=== PATIENT | female | born 1960 | race Caucasian/White ===

== ENCOUNTER → 2017-08-22 16:08 | Outpatient (CLI) | payer OTHER, SELFPAY ==
[2017-08-22 18:01] LABS: Thyroid Stim Hormone (TSH) 1.61 uIU/mL (0.358-3.74)
== END ==
PROVIDERS: Family Provider Family Medicine; PCP Family Medicine; Visit Provider Family Medicine
DX: M85.80 Other specified disorders of bone density and structure, unspecified site (principal)
CPT/HCPCS: 36415; 84443

== ENCOUNTER → 2017-10-24 16:26 | Outpatient (CLI) | payer OTHER, SELFPAY ==
[2017-10-24 17:57] LABS: Anion Gap 7 (5-15); BUN 15 mg/dL (7-18); BUN/Creat Ratio 18.8 RATIO (10-20); Chloride 106 mmol/L (98-107); EST Glomerular Filtration Rate 79 mL/min (>60); Est Glom Filt Rate - Afr Amer 95 mL/min (>60); Glucose 92 mg/dL (74-106); Potassium 3.8 mmol/L (3.5-5.1); Sodium Level 140 mmol/L (136-145)
== END ==
PROVIDERS: Family Provider Family Medicine; PCP Family Medicine; Visit Provider Family Medicine
DX: I10 Essential (primary) hypertension (principal)
CPT/HCPCS: 36415; 80048

== ENCOUNTER → 2018-01-18 16:39 | Outpatient (CLI) | payer OTHER, SELFPAY ==
[2018-01-18 17:56] LABS: BUN 17 mg/dL (7-18); Creatinine, Serum 0.84 mg/dL (0.55-1.02); EST Glomerular Filtration Rate 74 mL/min (>60); Glucose 88 mg/dL (74-106)
[2018-01-18 17:57] LABS: Anion Gap 5 (5-15); BUN/Creat Ratio 20.2 RATIO (10-20); Calcium,Total 9.5 mg/dL (8.5-10.1); Chloride 103 mmol/L (98-107); Est Glom Filt Rate - Afr Amer 89 mL/min (>60); Potassium 3.7 mmol/L (3.5-5.1); Sodium Level 137 mmol/L (136-145)
== END ==
PROVIDERS: Family Provider Family Medicine; PCP Family Medicine; Visit Provider Family Medicine
DX: I10 Essential (primary) hypertension (principal)
CPT/HCPCS: 36415; 80048

== ENCOUNTER → 2018-02-07 16:52 | Outpatient (CLI) | payer OTHER, SELFPAY | PROVIDERS: Family Provider Family Medicine; PCP Family Medicine; Referring Provider Family Medicine; Visit Provider Family Medicine | DX: M85.80 Other specified disorders of bone density and structure, unspecified site (principal) | CPT/HCPCS: 36415; 82306 ==

== ENCOUNTER → 2018-09-15 09:16 | Outpatient (CLI) | payer OTHER, SELFPAY ==
[2018-09-15 10:37] LABS: Anion Gap 8 (5-15); BUN 20 mg/dL (7-18); BUN/Creat Ratio 28.8 RATIO (10-20); Calcium,Total 9.2 mg/dL (8.5-10.1); Chloride 104 mmol/L (98-107); Cholesterol 207 mg/dL (200); Creatinine, Serum 0.69 mg/dL (0.55-1.02); EST Glomerular Filtration Rate 92 mL/min (>60); Est Glom Filt Rate - Afr Amer 111 mL/min (>60); Glucose 93 mg/dL (74-106); High Density Lipoprotein 63 mg/dL; Potassium 4.1 mmol/L (3.5-5.1); Sodium Level 142 mmol/L (136-145); Triglycerides 131 mg/dL; Very Low Density Lipoprotein 26 mg/dL (5-40)
== END ==
PROVIDERS: Family Provider Family Medicine; PCP Family Medicine; Referring Provider Family Medicine; Visit Provider Family Medicine
DX: I10 Essential (primary) hypertension (principal)
CPT/HCPCS: 36415; 80048; 80061

== ENCOUNTER → 2020-01-23 16:53 | Outpatient (CLI) | payer OTHER, SELFPAY ==
[2020-01-23 19:00] LABS: Anion Gap 3 (5-15); BUN 18 mg/dL (7-18); BUN/Creat Ratio 25.8 RATIO (10-20); Chloride 102 mmol/L (98-107); EST Glomerular Filtration Rate 91 mL/min (>60); Est Glom Filt Rate - Afr Amer 110 mL/min (>60); Glucose 89 mg/dL (74-106); Potassium 3.7 mmol/L (3.5-5.1); Sodium Level 135 mmol/L (136-145)
== END ==
PROVIDERS: PCP Family Medicine; Referring Provider Family Medicine; Visit Provider Family Medicine
DX: I10 Essential (primary) hypertension (principal)
CPT/HCPCS: 36415; 80048

== ENCOUNTER → 2020-02-07 15:28 | Outpatient (CLI) | payer OTHER, SELFPAY | PROVIDERS: PCP Family Medicine; Referring Provider Family Medicine; Visit Provider Family Medicine | DX: U07.1 COVID-19 (principal) | CPT/HCPCS: 87635; U0003 ==

== ENCOUNTER → 2021-01-26 16:40 | Outpatient (CLI) | payer OTHER, SELFPAY ==
[2021-01-26 18:19] LABS: Anion Gap 8 (5-15); BUN 15 mg/dL (7-18); BUN/Creat Ratio 21.8 RATIO (10-20); Calcium,Total 9.1 mg/dL (8.5-10.1); Chloride 101 mmol/L (98-107); Creatinine, Serum 0.69 mg/dL (0.55-1.02); EST Glomerular Filtration Rate 92 mL/min (>60); Est Glom Filt Rate - Afr Amer 112 mL/min (>60); Glucose 91 mg/dL (74-106); Potassium 3.4 mmol/L (3.5-5.1); Sodium Level 137 mmol/L (136-145)
[2021-01-26 18:20] LABS: Vitamin D,25 Hydroxy 56.4 ng/mL
== END ==
PROVIDERS: PCP Family Medicine; Referring Provider Family Medicine; Visit Provider Family Medicine
DX: I10 Essential (primary) hypertension (principal); M85.80 Other specified disorders of bone density and structure, unspecified site
CPT/HCPCS: 36415; 80048; 82306

== ENCOUNTER → 2021-12-14 | Outpatient (CLI) | payer OTHER, SELFPAY | END | disposition home or self-care (01) | PROVIDERS: PCP Family Medicine; Visit Provider Family Medicine | DX: Z20.822 Contact with and (suspected) exposure to COVID-19 (principal) | CPT/HCPCS: 87635; U0003; U0005 ==

== ENCOUNTER → 2022-02-03 | Outpatient (CLI) | payer OTHER, SELFPAY ==
[2022-02-03 08:27] LABS: Mucous, Urine 0 SEEN /hpf (<or=2+)
[2022-02-03 10:37] LABS: Color, Urine Yellow (Yellow); Glucose, Dipstick Normal (Normal); Ketone-Dipstick Negative (Negative); Leukocyte Esterase-Dipstick 25 /ul (Negative); Nitrite-Dipstick Negative (Negative); Occult Blood-Urine 25 /ul (Negative); Protein-Dipstick Negative (Negative); Urine Bilirubin Dipstick Negative (Negative); Urine Clarity Sl. Cloudy (Clear); Urine Urobilinogen Normal (Normal)
[2022-02-03 10:49] LABS: Bacteria 1+ /hpf (None Seen); Red Blood Cells-Urine 0-5 SEEN /hpf (0-5); Squamous Epithelial Cells - UA 0-5 SEEN /hpf (5-10); White Blood Cells 0-5 SEEN /hpf (0-5)
== END | disposition home or self-care (01) ==
LOC: MFPLAB 08:25 → LABSPEC 08:25
PROVIDERS: PCP Family Medicine; Referring Provider Family Medicine; Visit Provider Family Medicine
DX: R31.9 Hematuria, unspecified (principal)
CPT/HCPCS: 81001; 87086; 87088

== ENCOUNTER → 2022-08-18 | Outpatient (CLI) | payer OTHER, SELFPAY ==
[2022-08-18 19:41] LABS: Anion Gap 8 (5-15); BUN 16 mg/dL (7-18); BUN/Creat Ratio 24.8 RATIO (10-20); Calcium,Total 8.5 mg/dL (8.5-10.1); Chloride 104 mmol/L (98-107); Creatinine, Serum 0.64 mg/dL (0.55-1.02); EST Glomerular Filtration Rate 99 mL/min (>60); Est Glom Filt Rate - Afr Amer 120 mL/min (>60); Glucose 102 mg/dL (74-106); Potassium 3.5 mmol/L (3.5-5.1); Sodium Level 137 mmol/L (136-145)
== END | disposition home or self-care (01) ==
LOC: MTLAB 16:36
PROVIDERS: PCP Family Medicine; Referring Provider Family Medicine; Visit Provider Family Medicine
DX: I10 Essential (primary) hypertension (principal)
CPT/HCPCS: 36415; 80048

== ENCOUNTER → 2023-03-24 | Outpatient (CLI) | payer OTHER, SELFPAY | END | disposition home or self-care (01) | PROVIDERS: PCP Family Medicine; Visit Provider Family Medicine | DX: N39.0 Urinary tract infection, site not specified (principal) | CPT/HCPCS: 87077; 87086; 87088; 87186 ==

== ENCOUNTER → 2023-05-10 | Outpatient (CLI) | payer OTHER, SELFPAY ==
--- NOTE | 2023-05-10 15:20 | BD_ITS ---
STUDY: DUAL ENERGY X-RAY ABSORPTIOMETRY / DXA REASON FOR EXAM: Female, 63 years old. M85.89 TECHNIQUE: Bone Mineral Density (BMD) measurements of lumbar spine and bilateral hips were obtained. COMPARISON: None. FINDINGS: Lumbar Spine (L1-L4): g/cm2 (0.877) / T-score (-1.5) / Z-score (0.1) Findings are suggestive of osteopenia with a low fracture risk. Left Femur Total: g/cm2 (1.030) / T-score (0.7) / Z-score (1.9) Left Femoral Neck: g/cm2 (0.903) / T-score (0.5) / Z-score (1.9) Right Femur Total: g/cm2 (0.894) / T-score (-0.4) / Z-score (0.7) Right Femoral Neck: g/cm2 (0.718) / T-score (-1.2) / Z-score (0.2) BD/Dexa Bone Density Study IMPRESSION: The patient is considered osteopenic as outlined below according to World [employer] (WHO) criteria with a low fracture risk. Reference Information: The T-score is the number of standard deviations above or below the standard which is normal for young adults at their peak bone mineral density. The World Health Organization (WHO) interprets the T-scores as follows: Above -1 Normal bone density Between -1 and -2.5 Osteopenia Equal to / or below -2.5 Osteoporosis As a practical clinical guideline, osteopenia may be graded as follows: Mild -1 through -1.5 Moderate -1.6 through -2.0 Severe -2.1 through -2.4 The Z-score is the number of standard deviations above or below age-matched controls. A Z-score of less than -1.5 would be considered abnormal. References: 1. NIH Osteoporosis and Related Bone Diseases www osteo.org 2. International Society for Clinical Densitometry www iscd.org 3. National Osteoporosis Foundation www nof.org Electronically Signed: Gonzalo Jasso MD at 9:23 EST ,
--- OUTSIDE RECORDS SUMMARY | 2023-05-10 18:58 | XMS RPT_ITS | CCD ---
Author Name Unknown Address [address] [place] [address] Organization [facility] Care Team Providers Care Roofing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 Name Role Phone EH ROBERSON Admitting Unavailable EH ROBERSON Attending Unavailable EH ROBERSON Primary Care Unavailable Lio Clarke MD Primary Care Provider Lio Clarke MD Primary Care Provider Lio Clarke MD Primary Care Provider YOSELIN LOPEZ Attending Unavailable YOSELIN LOPEZ Referring Unavailable LIO CLARKE Primary Care UnavailNANCY Alvarado Referring Unavailable LIO CLARKE Primary Care Unavailkayla saleh Allergies Allergy Classification Reported Allergen(s) Allergy Type Date of Onset Reaction(s) Facility (7 sources) dairy products [Other] Propensity to adverse reactions [address] [place] [address] Work Phone: (7 sources) seasonal allergies [Other] Propensity to adverse reactions [address] [place] [address] Work Phone: (1 source) OTHER; Translations: [OTHER] Propensity to adverse reactions (disorder) [address] [place] [address] Repository Medications Completed/Discontinued Medications Medication Drug Class(es) Dates Sig (Normalized) Sig (Original) acetaminophen 250 mg / aspirin 250 mg / caffeine 65 mg oral tablet (7 sources) Platelet Aggregation Inhibitor, Nonsteroidal Anti-inflammatory Drug, Central Nervous System Stimulant, Methylxanthine Start: 08-05-2005 EXCEDRIN MIGRAINE 250 MG-250 MG-65 MG TAB prn 0 08/05/2005 Active Problems Active Problems Problem Classification Problem Date Documented Date Episodic/Chronic Essential hypertension (7 sources) Hypertensive disorder; Translations: [Essential (primary) hypertension] Onset: 03-14-2014 03-14-2014 Chronic Headache; including migraine (2 sources) Headache; Translations: [Headache] Onset: 12-04-2019 Episodic Immunizations and screening for infectious disease (1 source) Encounter for observation for suspected exposure to other biological agents ruled out; Translations: [Encounter for observation for suspected exposure to other biological agents ruled out] Onset: 12-04-2019 Episodic Menopausal disorders (7 sources) Atrophic vaginitis; Translations: [Postmenopausal atrophic vaginitis] Onset: 12-21-2012 12-21-2012 Chronic Nonmalignant breast conditions (1 source) Breast finding ; Translations: [Dense breast tissue] 11-05-2022 Episodic Other circulatory disease (7 sources) Raynaud's disease; Translations: [Raynaud's syndrome without gangrene] Onset: 03-14-2014 03-14-2014 Chronic Other inflammatory condition of skin (7 sources) Psoriasis; Translations: [Psoriasis, unspecified] Onset: 12-20-2011 12-20-2011 Chronic Other screening for suspected conditions (not mental disorders or infectious disease) (8 sources) Patient encounter status; Translations: [Encounter for screening mammogram for malignant neoplasm of breast] Onset: 11-05-2022 Episodic Residual codes; unclassified (1 source) Postmenopausal state; Translations: [Asymptomatic menopausal state] 11-05-2022 Episodic Past or Other Problems Problem Classification Problem Date Documented Da te Episodic/Chronic Other bone disease and musculoskeletal deformities (7 sources) Osteopenia; Translations: [Other specified disorders of bone density and structure, unspecified site] Onset: 03-14-2014 01-17-2018 Episodic Results Test Name Value Interpretation Reference Range Facil ity Vital Signs Date Time Vital Sign Value Performing Clinician Ashlyn armenta 11-05-2022 08:22-0400 Body height 167.6 cm Yoselin Lopez APRN.JUAN PABLO Work Phone: [facility] 11-05-2022 08:22-0400 Body weight 86.64 kg Yoselin Lopez APRN.CNM Work Phone: [facility] 11-05-2022 08:22-0400 Diastolic blood pressure 72 mm[Hg] Yoselin Lopez APRN.CNM Work Phone: [facility] 11-05-2022 08:22-0400 Systolic blood pressure 130 mm[Hg] Yoselin Catielb FINISHED CARPET INSPECTOR.CNM Work Phone: [facility] 10-15-2021 08:58-0400 Body height 165.7 cm Nancy Lobato MD Work Phone: [facility] 10-15-2021 08:58-0400 Body weight 88 kg Nancy Lobato MD Work Phone: [facility] 10-15-2021 08:58-0400 Diastolic blood pressure 84 mm[Hg] Nancy Lobato MD Work Phone: [facility] 10-15-2021 08:58-0400 Systolic blood pressure 124 mm[Hg] Nancy Lobato MD Work Phone: [facility] Encounters Encounter Date Encounter Type Care Provider Facility Start: 11-07-2022 Documentation procedure Mammog savannah Coordinator [facility] Start: 11-07-2022 Letter encounter Mammography Coordinator [facility] Department Start: 11-05-2022 End: 11-05-2022 ambulatory YOSELINABEL LOPEZ Facility:[facility] Start: 11-05-2022 Encounter for gynecological examination (general) (routine) without abnormal findings YOSELIN LOPEZ [facility] Start: 11-05-2022 End: 11-05-2022 Patient encounter procedure Yoselin Catielb FINISHED CARPET INSPECTOR.CNM Work Phone: OB/Gynecology Procedures Date Procedure Procedure Detail Performing Clinician Start: 11-05-2022 End: 11-05-2022 Mammography Nancy Lobato MD Work Phone: Start: 10-15-2021 End: 10-15-2021 Mammography Nancy Lobato MD Work Phone: Start: 05-18-2016 Lipid 1996 panel - S derick or Plasma Screen Wstr Start: 05-21-2011 Colonoscopy Nancy trimble MD Work Phone: Plan of Treatment Date Care Activity Detail Author Start: 10-09-2025 HPV TESTING HPV TESTING [facility] Start: 10-09-2025 PAP TESTING PAP TESTING [facility] Start: 11-06-2023 End: 12-05-2023 KEVIN SCREENING W JOSE KEVIN SCREENING W JOSE Radiology Routine Encounter for screening mammogram for breast cancer Dense breast tissue Expected: 11/06/2023 (Approximate), Expires: 12/05/2023 [facility] Work Phone: Immunizations Immunization Date Immunization Notes Care Provider Mor germán 01-02-2022 influenza virus vacc ine, unspecified formulation Screen Wstr [facility] Payers Date Payer Category Payer Unknown [id number] 2018 Unknown MMO MMO [employer] [id number] 2018-Present [phone] [address] [place] [address] PPO [id number] 2018 Unknown [id number] 1960 Unknown [id number] Social History Date Type Detail Facility Start: 12-20-2011 End: 11-05-2022 Tobacco smoking status NHIS Never smoked tobacco [facility] Work Phone: Start: 10-15-2021 End: 11-05-2022 Alcohol intake Current drinker of alcohol (finding) [facility] Start: 1960 Sex Assigned At Not on file [facility] Start: 10-05-2021 End: 10-15-2021 Exposure to SARS-CoV-2 (event) Not sure [facility] Start: 12-20-2011 End: 11-05-2022 Tobacco use and exposure Smokeless tobacco non-user [facility] Start: 11-05-2022 History of Social function [facility] Start: 11-05-2022 Tobacco use panel [facility] National Score (1-100), lower number is lower risk 72 [facility] Clinical Notes 10-15-2021 to 11-07-2022 Letter - Coordinator, Mammography - 11/07/2022 4:10 PM EDTPatient Yoselin Dupont APRN.CNM - 11/05/2022 8:14 AM Narda Gunter RT(R) - 11/05/2022 7:30 AM EDT Note Date & Type Note Facility 11-07-2022 Miscellaneous Notes November 08, 2022 PID: [id number] Violeta Pearce [address] [place] [address] Dear Ms. Pearce, We are pleased to inform you that the results of your recent breast imaging exam on 11/05/2022 are normal. Early detection of cancer is very important. We also understand recommendations regarding breast cancer screening are controversial. Please discuss with your primary care provider which strategy is best for you and whether a mammogram is right for you. Your imaging studies and report will be kept on file at [facility] as part of your permanent medical record and are available for your continuing care. Thank you for allowing us to help in meeting your health care needs. Sincerely, Dr. Payton Interpreting Radiologist [facility] (Normal over 40) documented in this encounter [facility] 11-05-2022 Note HNO ID: [id number] Author: Yoselin Lopez APRN.CNM Service: ? Author Type: Non Food Receiving Clerk Type: Progress Notes Filed: 11/05/2022 8:47 AM Note Text: Violeta is a 62 year old who presents for an annual gynecologic exam without complaints. Engaged. They spend a lot of time riding [employer]. Postmenopausal: Yes since age 45 HRT use: Yes, vaginal estrogen Last Pap: 10/14/2020 normal HPV: 10/13/2020 negative History of abnormal pap: Yes Years ago Last mammogram: today History of abnormal mammogram: No Sexually active: Yes Pain with intercourse: No Postcoital bleeding: No Hot flashes: No Night sweats: No Vaginal dryness: No OB History T1 L1 SAB0 IAB0 Ectopic0 Multiple0 Live Births0 Comment: also has 2 stepchildren 1 vaginal delivery Line Tester History LMP: 08/01/2007, Postmenopausal Age at Menarche: Age at First : Age at Menopause: Line Tester History Comments: Sexual Activity: Yes; Male; Postmenopausal Contraception: No contraception data on record PAST MEDICAL HISTORY Diagnosis Date Atrophic vaginitis Hypertension Osteopenia Psoriasis PAST SURGICAL HISTORY Procedure Laterality Date RMVL SEC MEMBRANOUS CTRC CORNEO-SCLL SCTJ 2007 Cataract removal B/L EYES FAMILY HISTORY Problem Relation Age of Onset Cancer Mother kidney Hypertension Mother Lipids Mother Dementia Mother Lipids Father Thyroid Father Heart Father UT Coronary Artery Disease Father Triple By-pass Osteoporosis Father other (parkinsons) Father Hypertension Maternal Aunt Breast Cancer Maternal Aunt Kidney Cancer also Thyroid Sister SOCIAL HISTORY Social History Tobacco Use Smoking status: Never Smokeless tobacco: Never Vaping Use Vaping Use: Never used Substance Use Topics Alcohol use: Yes Comment: occasionally Drug use: No REVIEW OF SYSTEMS Abdomen: No abdominal pain, nausea, vomiting, diarrhea, or constipation. No bloating, early satiety, indigestion, or increased flatulence. Bladder: No dysuria, gross hematuria, urinary frequency, urinary urgency, or incontinence Breast: No breast lumps, nipple d/c, overlying skin changes, redness or skin retraction Allergies and current medication updated:Yes EXAM: BP 130/72 Ht 5' 6 (1.68m) Wt 191 lb (86.6kg) LMP 08/01/2007 BMI 30.84 kg/(m2). GENERAL: pleasant, female in no apparent distress HEENT: Normocephalic and atraumatic NECK: Supple and full range of motion DERMATOLOGY: Normal and without lesions BREAST: deferred and Mammogram today CHEST: Normal inspiratory effort ABDOMEN: soft, non-tender, and no masses PELVIC: external genitalia normal, normal Bartholin's glands, urethra, Kearney's glands, no vulvar lesions, no cervical lesions, good vaginal support, physiologic discharge present, normal appearing perineal body and perianal region BIMANUAL: uterus normal size, shape and consistency, no adnexal masses, non-tender, and no cervical motion tenderness RECTOVAGINAL: deferred. NEURO: alert and oriented x3,exam grossly non-focal EXTREMITIES: normal ASSESSMENT/PLAN: 1) Health maintenance: Pap/HPV up to date. Mammogram ordered Calcium/Vitamin D supplementation information provided. Colon cancer screening: up to date with screening TSH/lipids/glucose: followed by PCP DXA scan ordered- last 2017 2) Follow up one year or sooner as needed Yoselin Lopez APRN.JUAN PABLO [facility] 11-05-2022 Note HNO ID: [id number] Author: Narda Solano RT(R) Service: Radiology Author Type: Loader Helper Type: Progress Notes Filed: 11/05/2022 7:46 AM Note Text: Radiology Service Progress Note PATIENT NAME: Violeta Pearce DATE OF SERVICE: November 05, 2022 TIME: 7:46 AM PATIENT IDENTITY VERIFICATION COMPLETED USING TWO (2) IDENTIFIERS: Name and Date of confirmed by patient verbally. FALL SCREENING: Has the patient had 2 falls in the last year or 1 fall with injury or currently using an Ambulatory Assistive Device (Walker, Cane, Wheelchair, Crutches, etc.)? No PATIENT GENDER DATA: Female. status: : No status: NO. PATIENT RELEVANT IMPLANT DATA REVIEWED: Yes RADIOLOGY DEPARTMENT: Mammography PERIPHERAL IV DATA: Not applicable SIGNED BY: RT Casper(R) November 05, 2022 7:46 AM [facility] 11-05-2022 Instructions Yoselin Lopez APRN.[facility] - 11/05/2022 8:43 AM EDT BONE MINERAL DENSITY PATIENT INSTRUCTIONS Bone mineral density testing measures the amount of calcium in certain parts of your bones. This information determines how strong your bones are. The test is used to detect osteoporosis, a disease in which the bone's mineral content and density are low, increasing a person's risk of fractures. The lumbar spine (lower back) and the hip are the skeletal sites usually examined. For the test, remember that: 1. You cannot take this test if you are . 2. Eat a normal diet on the day of the test. 3. Take your medications as you normally would. 4. DO NOT take calcium supplements (such as Tums) for 24 hours before the test. 5. On the day of the test, leave valuables (jewelry or credit cards) at home. 6. The test should be performed prior to oral, rectal or IV contrast studies, or at least 7 days after any of these studies. For the test, you may be asked to wear a hospital gown. You will lie on your back, on a padded table, in a comfortable position. Generally, you can resume your usual activities immediately. documented in this encounter [facility] 11-05-2022 History of Presen t illness Narrative Violeta is a 62 year old who presents for an annual gynecologic exam without complaints. Engaged. They spend a lot of time riding [employer]. Postmenopausal: Yes since age 45 HRT use: Yes, vaginal estrogen Last Pap: 10/14/2020 normal HPV: 10/13/2020 negative History of abnormal pap: Yes Years ago Last mammogram: today History of abnormal mammogram: No Sexually active: Yes Pain with intercourse: No Postcoital bleeding: No Hot flashes: No Night sweats: No Vaginal dryness: No OB History T1 L1 SAB0 IAB0 Ectopic0 Multiple0 Live Births0 Comment: also has 2 stepchildren 1 vaginal delivery Line Tester History LMP: 08/01/2007, Postmenopausal Age at Menarche: Age at First : Age at Menopause: Line Tester History Comments: Sexual Activity: Yes; Male; Postmenopausal Contraception: No contraception data on record PAST MEDICAL HISTORY Diagnosis Date Atrophic vaginitis Hypertension Osteopenia Psoriasis PAST SURGICAL HISTORY Procedure Laterality Date RMVL SEC MEMBRANOUS CTRC CORNEO-SCLL SCTJ 2007 Cataract removal B/L EYES FAMILY HISTORY Problem Relation Age of Onset Cancer Mother kidney Hypertension Mother Lipids Mother Dementia Mother Lipids Father Thyroid Father Heart Father UT Coronary Artery Disease Father Triple By-pass Osteoporosis Father other (parkinsons) Father Hypertension Maternal Aunt Breast Cancer Maternal Aunt Kidney Cancer also Thyroid Sister SOCIAL HISTORY Social History Tobacco Use Smoking status: Never Smokeless tobacco: Never Vaping Use Vaping Use: Never used Substance Use Topics Alcohol use: Yes Comment: occasionally Drug use: No REVIEW OF SYSTEMS Abdomen: No abdominal pain, nausea, vomiting, diarrhea, or constipation. No bloating, early satiety, indigestion, or increased flatulence. Bladder: No dysuria, gross hematuria, urinary frequency, urinary urgency, or incontinence Breast: No breast lumps, nipple d/c, overlying skin changes, redness or skin retraction Allergies and current medication updated:Yes EXAM: BP 130/72 Ht 5' 6 (1.68m) Wt 191 lb (86.6kg) LMP 08/01/2007 BMI 30.84 kg/(m^2). GENERAL: pleasant, female in no apparent distress HEENT: Normocephalic and atraumatic NECK: Supple and full range of motion DERMATOLOGY: Normal and without lesions BREAST: deferred and Mammogram today CHEST: Normal inspiratory effort ABDOMEN: soft, non-tender, and no masses PELVIC: external genitalia normal, normal Bartholin's glands, urethra, Kearney's glands, no vulvar lesions, no cervical lesions, good vaginal support, physiologic discharge present, normal appearing perineal body and perianal region BIMANUAL: uterus normal size, shape and consistency, no adnexal masses, non-tender, and no cervical motion tenderness RECTOVAGINAL: deferred. NEURO: alert and oriented x3,exam grossly non-focal EXTREMITIES: normal ASSESSMENT/PLAN: 1) Health maintenance: Pap/HPV up to date. Mammogram ordered Calcium/Vitamin D supplementation information provided. Colon cancer screening: up to date with screening TSH/lipids/glucose: followed by PCP DXA scan ordered- last one 2017 2) Follow up one year or sooner as needed Yoselin Lopez APRN.CNM documented in this encounter [facility] 11-05-2022 History of Presen t illness Narrative Radiology Service Progress Note PATIENT NAME: Violeta Pearce DATE OF SERVICE: November 05, 2022 TIME: 7:46 AM PATIENT IDENTITY VERIFICATION COMPLETED USING TWO (2) IDENTIFIERS: Name and Date of confirmed by patient verbally. FALL SCREENING: Has the patient had 2 falls in the last year or 1 fall with injury or currently using an Ambulatory Assistive Device (Walker, Cane, Wheelchair, Crutches, etc.)? No PATIENT GENDER DATA: Female. status: : No status: NO. PATIENT RELEVANT IMPLANT DATA REVIEWED: Yes RADIOLOGY DEPARTMENT: Mammography PERIPHERAL IV DATA: Not applicable SIGNED BY: RT Casper(R) November 05, 2022 7:46 AM documented in this encounter [facility] 04-21-2022 Miscellaneous Notes Last annual with BONIFACIO 10/15/21. Requested Prescriptions Pending Prescriptions Disp Refills Estradiol (VAGIFEM) 10 mcg vaginal tablet [Pharmacy Med Name: ESTRADIOL VAG INSERT W/STARR 1S 10MCG] 24 tablet 1 Sig: USE 1 TABLET VAGINALLY TWO TIMES A WEEK RX INSTRUCTIONS: Pharmacy initiated this request. No need to notify patient. Dian Delgado RN documented in this encounter [facility] 10-15-2021 Miscellaneous Notes October 15, 2021 PID: [id number] Violeta Pearce [address] [place] [address] Dear Bianca Mary, We are pleased to inform you that the results of your recent breast imaging exam on 10/15/2021 are normal. Early detection of cancer is very important. We also understand recommendations regarding breast cancer screening are controversial. Please discuss with your primary care provider which strategy is best for you and whether a mammogram is right for you. Your imaging studies and report will be kept on file at [facility] as part of your permanent medical record and are available for your continuing care. Thank you for allowing us to help in meeting your health care needs. Sincerely, Dr. Murguia Interpreting Radiologist [facility] (Normal over 40) documented in this encounter [facility] 10-15-2021 History of Presen t illness Narrative Violeta is a 61 year old who presents for an annual gynecologic exam. Postmenopausal: Yes HRT use: vaginal estrogen - yuvafem Last Pap: 10/14/2020 normal HPV: 10/13/2020 positive History of abnormal pap: Yes - more than 20 years ago Last mammogram: today OB History T1 L1 SAB0 IAB0 Ectopic0 Multiple0 Live Births0 Comment: also has 2 stepchildren 1 vaginal delivery Line Tester History LMP: 08/01/2007, Postmenopausal Age at Menarche: Age at First : Age at Menopause: Line Tester History Comments: Sexual Activity: Yes; Male; Postmenopausal Contraception: No contraception data on record PAST MEDICAL HISTORY Diagnosis Date Atrophic vaginitis Hypertension Osteopenia Psoriasis PAST SURGICAL HISTORY Procedure Laterality Date RMVL SEC MEMBRANOUS CTRC CORNEO-SCLL SCTJ 2007 Cataract removal B/L EYES FAMILY HISTORY Problem Relation Age of Onset Cancer Mother kidney Hypertension Mother Lipids Mother Dementia Mother Lipids Father Thyroid Father Heart Father [place] Coronary Artery Disease Father Triple By-pass Osteoporosis Father other (parkinsons) Father Hypertension Maternal Aunt Breast Cancer Maternal Aunt Kidney Cancer also Thyroid Sister SOCIAL HISTORY Social History Tobacco Use Smoking status: Never Smoker Smokeless tobacco: Never Used Vaping Use Vaping Use: Never used Substance Use Topics Alcohol use: Yes Comment: occasionally Drug use: No REVIEW OF SYSTEMS Abdomen: No abdominal pain, nausea, vomiting, diarrhea, or constipation. No bloating, early satiety, indigestion, or increased flatulence. Bladder: No dysuria, gross hematuria, urinary frequency, urinary urgency, or incontinence Breast: No breast lumps, nipple d/c, overlying skin changes, redness or skin retraction Allergies and current medication updated:Yes EXAM: BP 124/84 Ht 5' 5.25 (1.66m) Wt 194 lb (88.0kg) LMP 08/01/2007 BMI 32.05 kg/(m^2). GENERAL: pleasant, female in no apparent distress BREAST: soft, non-tender, no dominant mass, normal nipple-areolar complex, no lymphadenopathy and no nipple discharge CHEST: Normal inspiratory effort ABDOMEN: soft, non-tender and no masses PELVIC: external genitalia normal, no vulvar lesions, no cervical lesions, normal appearing perineal body and perianal region BIMANUAL: uterus normal size, shape and consistency, no adnexal masses and non-tender RECTOVAGINAL: rectovaginal exam negative for any masses or nodularity. NEURO: alert and oriented x3,exam grossly non-focal EXTREMITIES: normal ASSESSMENT/PLAN: 1) Health maintenance: Pap/HPV up to date. Mammogram up to date Nutrition, exercise and routine health maintenance exams reviewed. Colon cancer screening: patient to discuss with PCP BMD: followed by PCP 2) Follow up one year or sooner as needed 3) Atrophic vaginitis - using yuvafem 1 time per week, declines new rx Nancy Lobato MD documented in this encounter [facility] 10-15-2021 History of Presen t illness Narrative Radiology Service Progress Note PATIENT NAME: Violeta Pearce DATE OF SERVICE: October 15, 2021 TIME: 9:28 AM PATIENT IDENTITY VERIFICATION COMPLETED USING TWO (2) IDENTIFIERS: Name and Date of confirmed by patient verbally. FALL SCREENING: Has the patient had 2 falls in the last year or 1 fall with injury or currently using an Ambulatory Assistive Device (Walker, Cane, Wheelchair, Crutches, etc.)? No PATIENT GENDER DATA: Female. status: : No status: NO. PATIENT RELEVANT IMPLANT DATA REVIEWED: Not Applicable RADIOLOGY DEPARTMENT: Mammography PERIPHERAL IV DATA: Not applicable SIGNED BY: RT Constantino(R) October 15, 2021 9:28 AM documented in this encounter [facility] Encounter for screening mammogram for breast cancer [facility] Diagnosis Encounter for gynecological examination (general) (routine) without abnormal findings- Primary Encounter for screening mammogram for breast cancer Dense breast tissue Asymptomatic postmenopausal status [facility] Diagnosis Encounter for gynecological examination (general) (routine) without abnormal findings Encounter for screening mammogram for breast cancer Dense breast tissue [facility] Diagnostic Procedure Only (Routine) - Pending Review Specialty Diagnoses / Procedures Referred By Taryn parks Referred To Contact [facility] Diagnoses Encounter for gynecological examination (general) (routine) without abnormal findings Encounter for screening mammogram for breast cancer Dense breast tissue Procedures KEVIN SCREENING W JOSE SCREENING DIGITAL BREAST TOMOSYNTHESIS BI SCREENING MAMMOGRAPHY BI 2-VIEW BREAST INC Nancy Zhou MD [address] [place] [address] [facility] [address] [place] [id number] Referral ID Status Reason Start Date Expiration Date Visits Requested Visits Authorized [id number] Pending Review Auto-Generat ed Referral 10/15/2021 11/14/2022 1 1 T [facility] for referral (narrative)* Diagnostic Procedure Only (Routine) - Authorized Specialty Diagnoses / Procedures Referred By Contac t Referred To Contact [facility] Diagnoses Encounter for screening mammogram for breast cancer Dense breast tissue Procedures KEVIN SCREENING W JOSE SCREENING DIGITAL BREAST TOMOSYNTHESIS BI SCREENING MAMMOGRAPHY BI 2-VIEW BREAST INC Yoselin Godfrey [email or web address] [address] [place] [address] [facility] [address] [address] Referral ID Status Reason Start Date Expiration Date Visits Requested Visits Authorized [id number] Authorized Auto-Generat ed Referral 11/06/2023 12/05/2023 1 1 T [facility] for referral (narrative)* Diagnostic Procedure Only (Routine) - Closed Specialty Diagnoses / Procedures Referred By Contaliyah t Referred To Contact [facility] Diagnoses Encounter for gynecological examination (general) (routine) without abnormal findings Encounter for screening mammogram for breast cancer Dense breast tissue Procedures KEVIN SCREENING W JOSE SCREENING DIGITAL BREAST TOMOSYNTHESIS BI SCREENING MAMMOGRAPHY BI 2-VIEW BREAST INC Nancy Zhou MD [address] [place] [address] [facility] [address] [place] [address] Referral ID Status Reason Start Date Expiration Date V isits Requested Visits Authorized [id number] Closed Auto-Generate d Referral 10/15/2021 11/14/2022 1 1 [facility] for visit Narrative* Diagnostic Procedure Only (Routine) - Closed Specialty Diagnoses / Procedures Referred By Contac t Referred To Contact [facility] Diagnoses Encounter for gynecological examination (general) (routine) without abnormal findings Encounter for screening mammogram for breast cancer Dense breast tissue Procedures KEVIN SCREENING W JOSE SCREENING DIGITAL BREAST TOMOSYNTHESIS BI SCREENING MAMMOGRAPHY BI 2-VIEW BREAST INC Nancy Zhou MD [address] [place] [address] [facility] [address] [place] [address] Referral ID Status Reason Start Date Expiration Date V isits Requested Visits Authorized [id number] Closed Auto-Generate d Referral 10/15/2021 11/14/2022 1 1 [facility] Summary Purpose Family History No Family History Records FoundNo Family History Records FoundNo Family History Records Found Advance Directives No Advanced Directives Records FoundNo Advanced Directives Records FoundNo Advanced Directives Records Found Additional Source Comments INFORMATION SOURCE (unrecogn ized section and content) DATE CREATED AUTHOR AUTHOR'S ORGANIZ ATION 04/26/2020 [facility] DATE CREATED AUTHOR AUTHOR'S ORGANIZ ATION 11/09/2022 [facility] Source Comments (unrecognize d section and content) In the event this informatio n is protected by the Federal Confidentiality of Alcohol and Drug Abuse Patient Records regulations: The Federal rules restrict any use of the information to criminally investigate or prosecute any alcohol or drug abuse patient.[facility] the event this information is protected by the Federal Confidentiality of Alcohol and Drug Abuse Patient Records regulations: The Federal rules restrict any use of the information to criminally investigate or prosecute any alcohol or drug abuse patient.[facility] the event this information is protected by the Federal Confidentiality of Alcohol and Drug Abuse Patient Records regulations: The Federal rules restrict any use of the information to criminally investigate or prosecute any alcohol or drug abuse patient.[facility] the event this information is protected by the Federal Confidentiality of Alcohol and Drug Abuse Patient Records regulations: The Federal rules restrict any use of the information to criminally investigate or prosecute any alcohol or drug abuse patient.[facility] the event this information is protected by the Federal Confidentiality of Alcohol and Drug Abuse Patient Records regulations: The Federal rules restrict any use of the information to criminally investigate or prosecute any alcohol or drug abuse patient.[facility] the event this information is protected by the Federal Confidentiality of Alcohol and Drug Abuse Patient Records regulations: The Federal rules restrict any use of the information to criminally investigate or prosecute any alcohol or drug abuse patient.[facility] the event this information is protected by the Federal Confidentiality of Alcohol and Drug Abuse Patient Records regulations: The Federal rules restrict any use of the information to criminally investigate or prosecute any alcohol or drug abuse patient.[facility] Care Teams (unrecognized sec tion and content) 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 Relationship Specialty Start Date End Date Lio Clarke MD [address] [place], [place] [phone] PCP - General Family Practice 02/08/11 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 Relationship Specialty Start Date End Date Lio Clarke MD [address] [place], [place] [phone] PCP - General Family Practice 02/08/11 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 Relationship Specialty Start Date End Date Lio Clarke MD [address] [place] [address] [id number] PCP - General Family Medicine 02/08/11 [employer]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 Relationship Specialty Start Date End Date Lio Clarke MD [address] [place] [address] [id number] PCP - General Family Medicine 02/08/11 [employer]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 This clinical summary was aggregated from multiple sources. Caution should be exercised in using it in the provision of clinical care. This summary normalizes information from multiple sources, and as a consequence, information in this document may materially change the coding, format and clinical context of patient data. In addition, data may be omitted in some cases. CLINICAL DECISIONS SHOULD BE BASED ON THE PRIMARY CLINICAL RECORDS. [employer] provides no warranty or guarantee of the accuracy or completeness of information in this document.
== END | disposition home or self-care (01) ==
LOC: OPBD 15:15
PROVIDERS: PCP Family Medicine; Referring Provider Family Medicine; Visit Provider Family Medicine
DX: M85.89 Other specified disorders of bone density and structure, multiple sites (principal); M85.80 Other specified disorders of bone density and structure, unspecified site
CPT/HCPCS: 77080

== ENCOUNTER → 2023-10-20 | Outpatient (CLI) | payer OTHER, SELFPAY ==
--- NOTE | 2023-10-20 08:31 | VDLE_ITS ---
Version 2 Reason For Study: LLE SOFT TISSUE DISORDER RIGHT LEFT CFV is compressible, spontaneous, phasic, GSV is normal. competent and demonstrates normal CFV is compressible, spontaneous, phasic, augmentation. competent, and demonstrates normal Procedure augmentation. This is a venous duplex using B-mode, color FV is compressible, spontaneous, phasic, flow and spectral Doppler. competent and demonstrates normal Exam performed in department. augmentation. The exam was diagnostic. POP V is compressible, spontaneous, phasic, A preliminary report was called and/or faxed competent and demonstrates normal to Dr. Clarke @ 09:15 am @ [phone]. augmentation. T/P Trunk is compressible. PTV is compressible. LT PerV is compressible. VL/Venous Duplex US, Unilateral Interpretation Summary Deep veins of the left lower extremity are patent and compressible segmentally. There is no evidence of left lower extremity deep vein thrombosis. The left great saphenous vein ronn ears patent and compressible segmentally. No soft tissue abnormality or cysts visualized. Ordering Physician: Chavez Clarke Referring Physician: Chavez Clarke Performed By: Violeta Leblanc, NAHUM, RVT
== END | disposition home or self-care (01) ==
LOC: CVS 08:27
PROVIDERS: PCP Family Medicine; Referring Provider Family Medicine; Visit Provider Family Medicine
DX: M79.89 Other specified soft tissue disorders (principal)
CPT/HCPCS: 93971

== ENCOUNTER → 2025-03-04 | Outpatient (CLI) | payer OTHER, SELFPAY ==
[2025-03-04 18:33] LABS: Anion Gap 12 (5-15); BUN 11 mg/dL (4-19); BUN/Creat Ratio 16.7 RATIO (10-20); Calcium,Total 9.2 mg/dL (7.6-11.0); Carbon Dioxide 26.4 mmol/L (21.0-32.0); Chloride 100 mmol/L (98-108); Glucose 96 mg/dL (70-99); Potassium 3.7 mmol/L (3.3-5.1); Vitamin D,25 Hydroxy 58.8 ng/mL (30-100)
--- OUTSIDE RECORDS SUMMARY | 2025-03-04 20:00 | XMS RPT_ITS | CCD ---
Author Organization [facility] Care Team Providers Care Farm Reporter Name Role Phone EH ROBERSON Admitting Unavailable EH ROBERSON Attending Unavailable EH ROBERSON Primary Care Unavailable Lio Clarke MD Primary Care Provider Lio Clarke MD Primary Care Provider Lio Clarke MD Primary Care Provider Lio Clarke MD Primary Care Provider Lio Clarke Referring Unavailable Gustavo Banda Attending Unavailable Lio Clarke Primary Care Unavailable Lio Clarke Referring Unavailable Loi Clarke Attending Unavailable Lio Clarke Primary Care Unavailable Lio Clarke Attending Unavailable Lio Clarke Primary Care Unavailable Lio Clarke Referring Unavailable Lio Clarke Referring Unavailable Abdulkadir Latham Attending Unavailable Lio Clarke Primary Care Unavailable LIO CLARKE Primary Care Unavailkayla saleh SELF Referring Unavailable LIO CLARKE Primary Care UnavailYOSELIN Nguyen Referring Unavailable YOSELIN LOPEZ Attending Unavailable LIO CLARKE Primary Care Unavailkayla e YOSELIN LOPEZ Referring Unavailable VANESSA NAVARRO Attending Unavailable Allergies Allergy Classification Reported Allergen(s) Allergy Type Date of Onset Reaction(s) Facility (13 sources) dairy products [Other] Propensity to adverse reactions 6 [facility] Work Phone: (13 sources) seasonal allergies [Other] Propensity to adverse reactions 6 [facility] Work Phone: (1 source) Milk Drug allergy (disorder) 5 [facility] (2 sources) Lactase; Translations: [LACTASE] Drug Allergy Other: See Comments [facility] Medications Current Medications Medication Drug Class(es) Dates Sig (Normalized) Sig (Original) acetaminophen 250 mg / aspirin 250 mg / caffeine 65 mg oral tablet (15 sources) Platelet Aggregation Inhibitor, Nonsteroidal Anti-inflammatory Drug, Central Nervous System Stimulant, Methylxanthine Start: 08-05-2005 EXCEDRIN MIGRAINE 250 MG-250 MG-65 MG TAB prn 0 08/05/2005 Active Comment on above: prn calcium carbonate/vitamin D2 (CALCIUM 600 WITH VITAMIN D ORAL) (15 sources) take 2 tablets by mouth once daily calcium carbonate/vitami n D2 (CALCIUM 600 WITH VITAMIN D ORAL) Take 2 tablets by mouth once daily. Active take 2 tablets by mouth once sudeep ly calcium carbonate/vitamin D2 (CALCIUM 600 WITH VITAMIN D ORAL) Take 2 tablets by mouth once daily. 0 Active Comment on above: Take 2 tablets by mo uth once daily. Cetirizine (15 sources) Histamine-1 Receptor Antagonist CETIRIZINE HCL (ZYRTEC ORAL) Take by mouth. Takes daily during fall Active CETIRIZINE HCL ( ZYRTEC ORAL) Take by mouth. Takes daily during fall 0 Active Comment on above: Take by mouth. Takes daily during fall CHOLECALCIFEROL, VITAMIN D3, (VITAMIN D3 ORAL) (15 sources) CHOLECALCIFEROL, VITAMIN D3, (VITAMIN D3 ORAL) Take 2,000 Int'l Units/L by mouth once daily. Active CHOLECALCIFEROL, VITAMIN D3, (VITAMIN D3 ORAL) Take 2,000 Int'l Units/L by mouth once daily. 0 Active Comment on above: Take 2,000 Int'l Uni ts/L by mouth once daily. Docusate (1 source) docusate sodium (STOOL SOFTENER PO) Take by mouth. Active estradiol 0.01 mg vaginal insert (18 sources) Estrogen Start : 12-12 End: 06-29 Estradiol (VAGIFEM) 10 mcg vaginal tablet Use 1 tablet vaginally two times a week. 24 tablet 1 06/29/2024 Active Comment on above: USE 1 TABLET VAGINAL LY TWO TIMES A WEEK ferrous sulfate 325 mg oral tablet (15 sources) Start : 08-04 IRON 325 MG (65 MG) TAB As needed 0 08/04/2005 Active Comment on above: As needed hydroCHLOROthiazide 25 mg oral tablet (15 sources) Thiazide Diuretic Start : 08-19 hydroCHLOROthiazide (HYDRODIURIL, ESIDRIX) 25 mg tablet 08/20/2019 Active hydrocortisone 25 mg/ml topical cream (1 source) Corticosteroid Start : 11-28 hydrocortisone (ANUSOL-HC) 2.5 % rectal cream by RECTAL route two times a day. 28 g 2 11/28/2024 Active losartan potassium 50 mg oral tablet (15 sources) Angiotensin 2 Receptor [facility] take 1 tablet by mouth once daily losartan (COZAAR) 50 mg tablet Take 50 mg by mouth once daily. Active Comment on above: Take 50 mg by mouth once daily. MULTIVITAMIN TAB (15 sources) Start : 08-04 MULTIVITAMIN TAB Take one(1) tablet daily. 0 08/04/2005 Active Comment on above: Take one(1) tablet d aily. Completed/Discontinued Medications Medication Drug Class(es) Dates Sig (Normalized) Sig (Original) acetaminophen 500 mg / pseudoephedrine hydrochloride 30 mg oral tablet (15 sources) alpha-Adrenergic Agonist Start: 08-04-2005 End: 11-28-2024 SUDAFED SINUS 30 MG-500 MG TAB 0 08/04/2005 11/28/2024 Discontinued (Discontinued by Patient) Problems Active Problems Problem Classification Problem Date Documented Date Episodic/Chronic Essential hypertension (15 sources) Hypertensive disorder; Translations: [Essential (primary) hypertension] Onset: 03-14-2014 03-14-2014 Chronic Headache; including migraine (2 sources) Headache; Translations: [Headache] Onset: 12-04-2019 Episodic Hemorrhoids (3 sources) Hemorrhoids; Translations: [Other hemorrhoids] Onset: 11-28-2024 11-28-2024 Episodic Immunizations and screening for infectious disease (1 source) Encounter for observation for suspected exposure to other biological agents ruled out; Translations: [Encounter for observation for suspected exposure to other biological agents ruled out] Onset: 12-04-2019 Episodic Menopausal disorders (15 sources) Atrophic vaginitis; Translations: [Postmenopausal atrophic vaginitis] Onset: 12-21-2012 12-21-2012 Chronic Nonmalignant breast conditions (2 sources) Breast finding ; Translations: [Dense breast tissue] 11-05-2022 Episodic Other circulatory disease (15 sources) Raynaud's disease; Translations: [Raynaud's syndrome without gangrene] Onset: 03-14-2014 03-14-2014 Chronic Other inflammatory condition of skin (15 sources) Psoriasis; Translations: [Psoriasis, unspecified] Onset: 12-20-2011 12-20-2011 Chronic Other screening for suspected conditions (not mental disorders or infectious disease) (11 sources) Patient encounter status; Translations: [Encounter for screening mammogram for malignant neoplasm of breast] Onset: 11-28-2024 Episodic Residual codes; unclassified (3 sources) Postmenopausal state; Translations: [Asymptomatic menopausal state] 11-05-2022 Episodic Past or Other Problems Problem Classification Problem Date Documented Da te Episodic/Chronic Other bone disease and musculoskeletal deformities (15 sources) Osteopenia; Translations: [Other specified disorders of bone density and structure, unspecified site] Onset: 03-14-2014 01-17-2018 Episodic Other bone disease and musculoskeletal deformities (1 source) Other specified disorders of bone density and structure, multiple sites; Translations: [Other specified disorders of bone density and structure, multiple sites] Onset: 05-16-2023 Episodic Other connective tissue disease (1 source) Other specified soft tissue disorders; Translations: [Other specified soft tissue disorders] Onset: 11-08-2023 Episodic Unclassified (2 sources) Patient encounter status 11-28-2024 Results Test Name Value Interpretation Reference Range Facility [facility] 12-17-2024 CN Office Visit (HOLLIE) VIOLETA PEARCE ([id number]) 1960 F Date Time Provider Department 12/17/24 3:30 PM VANESSA NAVARRO During your visit today, we recorded the following information about you: Pulse Respiration Blood pressure Weight 94/minute 14/minute 162/96 93.4 kg Maureen Hutchinson, BENJAMIN 12/20/2024 2:20 PM Signed REVIEW OF SYSTEMS: General: The patient denies fatigue, denies weight loss, notes weight gain, denies feeling hot, and denies feelings of cold. Eyes: The patient denies glaucoma, notes eye injury/surgery, wears glasses or contacts. Ear/Nose/Throat: The patient notes allergies, denies hayfever, denies ear infections, and denies bloody noses. Cardiovascular: The patient denies chest pain, denies heart disease, notes high blood pressure,denies cardiac stent, denies prior heart attack, denies irregular heart beat, denies high cholesterol, notes poor circulation, denies heart failure, other cardiac issues, denies claudication, notes cold feet, denies peripheral arterial stent. Respiratory: The patient denies tuberculosis, denies pneumonia, denies frequent cough, denies pulmonary embolism, denies shortness of breath, and denies coughing up blood. Gastrointestinal: The patient denies difficulty swallowing, denies acid reflux, denies ulcers, denies vomiting, denies jaundice/hepatitis, denies gallbladder problems, denies black or tarry stools, notes hemorrhoids, notes bleeding from rectum, denies diverticulitis, denies constipation, denies diarrhea, denies loss of stool control, and denies hernias. Kidney/Bladder: The patient denies kidney stones, denies urine infections, and denies bloody urine. Skin: The patient denies a history of skin cancer, denies bleeding/changing moles, and denies a history of skin rash. Neurologic: The patient denies a history of epilepsy/convulsions , denies headaches, denies head/spinal injuries, and denies stroke/TIA. Psychiatric: The patient denies psychiatric medications, denies depression, and denies voices, denies substance abuse. Endocrine: The patient denies thyroid disorders, denies diabetes, and notes hormonal problems. Hematologic: The patient denies a history of bruising, denies bleeding, and denies anemia, denies blood clots. Infections: The patient denies a history of measles and mumps, denies rheumatic fever, and denies sexually transmitted diseases. Musculoskeletal: The patient denies back pain/injury, denies back problems, denies sciatica, denies knee/foot trouble, denies arthritis, or denies gout. When was patient's last Mammogram screening? N/A Last Colonoscopy: BENJAMIN Eddy, Vanessa Alba MD 12/20/2024 2:20 PM Signed Violeta Alaura 1960 REFERRING PHYSICIAN: Yoslein Lopez APRN.* CHIEF COMPLAINT: Hemorrhoids (Has had for 30 years) HPI: The patient is a 64 year old female presents with complaint of hemorrhoidal disease. She complains mostly of protruding hemorrhoidal tissue. She notes BRBPR occasionally with bowel movements. She also states that they are hard to clean. She has noted hemorrhoidal disease for 30 years, since childbirth. She states that she last had colonoscopy 10 years ago, she is doing stool test for screening for colon cancer She notes no colon cancer in family PAST MEDICAL HISTORY Diagnosis Date Atrophic vaginitis Hypertension Osteopenia Psoriasis PAST SURGICAL HISTORY Procedure Laterality Date RMVL SEC MEMBRANOUS CTRC CORNEO-SCLL SCTJ 2006 Cataract removal B/L EYES Current Outpatient Medications Medication Sig docusate sodium (STOOL SOFTENER PO) Take by mouth. hydrocortisone (ANUSOL-HC) 2.5 % rectal cream by RECTAL route two times a day. Estradiol (VAGIFEM) 10 mcg vaginal tablet Use 1 tablet vaginally two times a week. hydroCHLOROthiazide (HYDRODIURIL, ESIDRIX) 25 mg tablet calcium carbonate/vitamin D2 (CALCIUM 600 WITH VITAMIN D ORAL) Take 2 tablets by mouth once daily. losartan (COZAAR) 50 mg tablet Take 50 mg by mouth once daily. CHOLECALCIFEROL, VITAMIN D3, (VITAMIN D3 ORAL) Take 2,000 Int'l Units/L by mouth once daily. CETIRIZINE HCL (ZYRTEC ORAL) Take by mouth. Takes daily during fall EXCEDRIN MIGRAINE 250 MG-250 MG-65 MG TAB prn MULTIVITAMIN TAB Take one(1) tablet daily. IRON 325 MG (65 MG) TAB As needed No current facility-administere d medications for this visit. ALLERGIES: Dairy Aid [Lactase] PERSONAL HISTORY: SOCIAL HISTORY[1] FAMILY HISTORY Problem Relation Age of Onset Cancer Mother kidney Hypertension Mother Lipids Mother Dementia Mother Lipids Father Thyroid Father Heart Father [place] Coronary Artery Disease Father Triple By-pass Osteoporosis Father other (parkinsons) Father Hypertension Maternal Aunt Breast Cancer Maternal Aunt Kidney Cancer also Thyroid Sister REVIEW OF SYSTEMS: General: The patient denies (more content not included)... Normal [facility] CNOVon 11-28-2024 CNOV Office Visit (OBGYWM) VIOLETA PEARCE ([id number]) 1960 F Date Time Provider Department 11/28/24 8:15 AM YOSELIN LOPEZ OBFEDERICOWHilda During your visit today, we recorded the following information about you: Blood pressure Weight Height 118/76 92.4 kg 1.651 m Yoselin Lopez APRN.CN 11/28/2024 8:51 AM Signed Sas Programmer offered: Patient declinesBianca Mcdaniel is a 64 year old who presents for an annual gynecologic exam without complaints. C/O hemorrhoids that are bothersome at times. Postmenopausal: Yes since age 52 HRT use: Yes, estradiol How lon years. Age at Menarche: 13 Still get period: No Sexually active: Yes Time with current partner: 6 years Contraception: None Contraception frequency: Never HPV vaccine: No Last pap smear: 10/09/2020, normal History of abnormal pap: Yes Colposcopy: No. Leep: No. 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 History Comments: Sexual Activity: Yes; Male; Postmenopausal Contraception: No contraception data on record PAST MEDICAL HISTORY Diagnosis Date Atrophic vaginitis Hypertension Osteopenia Psoriasis PAST SURGICAL HISTORY Procedure Laterality Date RMVL SEC MEMBRANOUS CTRC CORNEO-SCLL SCTJ 2007 Cataract removal B/L EYES FAMILY HISTORY Problem Relation Age of Onset Cancer Mother kidney Hypertension Mother Lipids Mother Dementia Mother Lipids Father Thyroid Father Heart Father [place] Coronary Artery Disease Father Triple By-pass Osteoporosis Father other (parkinsons) Father Hypertension Maternal Aunt Breast Cancer Maternal Aunt Kidney Cancer also Thyroid Sister SOCIAL HISTORY Social History Tobacco Use Smoking status: Never Smokeless tobacco: Never Vaping Use Vaping status: Never Used Substance Use Topics Alcohol use: Yes Comment: occasionally Drug use: No REVIEW OF SYSTEMS Abdomen: No abdominal pain, nausea, vomiting, diarrhea, or constipation. No bloating, early satiety, indigestion, or increased flatulence. Bladder: No dysuria, gross hematuria, urinary frequency, urinary urgency, or incontinence Breast: No breast lumps, nipple d/c, overlying skin changes, redness or skin retraction Allergies and current medication updated:Yes SENSITIVE EXAM: The sensitive examination was discussed with the Patient or Patient's Authorized Pullboat Engineer. As applicable, any other physician, advance practice provider, medical student, or other health professional student that will be observing or involved in the sensitive examination for educational or training purposes was discussed with the Patient or Authorized Pullboat Engineer. The Patient or Authorized Pullboat Engineer has agreed to proceed with the sensitive examination. (Sensitive examination includes inspection and/or palpation of the breasts, pelvis, prostate and anorectal regions). EXAM: BP 118/76 Ht 5' 5 (1.65m) Wt 203 lb 12.8 oz (92.4kg) LMP 08/01/2007 BMI 33.91 kg/(m2). GENERAL: pleasant, female in no apparent distress HEENT: Normocephalic, atraumatic, mucus membranes moist, and no lesions NECK: Supple and full range of motion DERMATOLOGY: Normal, without lesions, non-icteric, and non-hirsute BREAST: deferred CHEST: Normal inspiratory effort ABDOMEN: soft, non-tender, and no masses PELVIC: external genitalia normal, normal Bartholin's glands, urethra, [place]'s glands, no vulvar lesions, no cervical lesions, good vaginal support, physiologic discharge present, normal appearing perineal body and perianal region BIMANUAL: uterus normal size, shape and consistency, no adnexal masses, non-tender, and no cervical motion tenderness RECTOVAGINAL: External hemorrhoid NEURO: alert and oriented x3,exam grossly non-focal EXTREMITIES: normal ASSESSMENT/PLAN: 1) Health maintenance: Pap/HPV up to date. Mammogram up to date Colon cancer screening: up to date with screening TSH/lipids/glucose: followed by PCP 2) Rx for Anusol cream sent - Consult to Gastroenterology- for evaluation/ banding Follow up one year or sooner as needed Yoselin Lopez APRN.CNM Referring Provider: YOSELIN LOPEZ [[id number]] Allergies As of Date: 11/28/2024 Noted Allergy Reaction DAIRY AID (LACTASE) 11/28/2024 14 - Other: See Comments Comments: Sinus issues, headaches Date Reviewed: 11/28/2024 Reviewed by: Yoselin Lopez APRN.CNM - Fully Assessed Reason for Visit: Well Woman [[id number]] Primary Visit Diagnosis:Encounter for gynecological examination (general) (routine) without abnormal findi (more content not included)... Normal [facility] DBT Breast - bilateral scree joshgon 11-28-2024 IMPRESSION: There is no mammographic evidence of malignancy in either breast. Routine screening mammogram is recommended. Annual mammogram will be due in 1 year. BI-RADS Category 1: Negative RISK: Based on the Tyrer-Cuzick (TC) risk assessment model, this patient has a 4.7% lifetime risk of developing breast cancer, meaning they are at average risk for developing breast cancer. However, this is only an estimate based on available history provided on the patient's questionnaire. We encourage all patients to talk with their providers about these results, further recommendations for managing breast health, and appropriate supplemental screening options if the patient has dense breast tissue. Interpreting Radiologist: Junie Waite M.D. Electronically signed on: 11/28/2024 Vascular Neurologist: JAMAL Transcridedra Date/Time: Nov 28 2024 7:46A Dictated by: JUNIE WAITE MD This examination was interpreted and the report reviewed and electronically signed by: JUNIE WAITE MD on Nov 28 2024 9:45AM [facility] DIVISION OF RADIOLOGY * * *Final Report* * * DATE OF EXAM: Nov 28 2024 8:14AM [facility] [id number] - [place] SCREENING W JOSE / PROCEDURE REASON: Encounter for screening mammogram for breast cancer * * * * Physician Interpretation * * * * RESULT: [place] [id number] [place] [id number] #[id number] - [facility] SCREENING W JOSE HISTORY: 64 year-old patient presents for screening. Patient is asymptomatic in both breasts. Patient states no personal history of breast cancer. The patient has a family history of breast cancer. COMPARISON STUDIES: The present examination has been compared to prior imaging studies dated 11/04/2020 (mammogram), 10/15/2021 (mammogram), 11/05/2022 (mammogram), 11/07/2023 (mammogram) and 11/11/2023 (mammogram). MAMMOGRAM TECHNIQUE: The study was acquired using full field digital technology and interpreted from soft copy. Digital Breast Tomosynthesis (DBT) images were obtained and used to assist in the interpretation of this examination. MAMMOGRAM FINDINGS: The breasts are almost entirely fatty. No suspicious masses, calcifications or other abnormalities are seen in either breast. There are no significant interval changes. DIVISION OF RADIOLOGY Provider, [facility] - 11/28/2024 * * *Final Report* * * DATE OF EXAM: Nov 28 2024 8:14AM [id number] - [facility] SCREENING W JOSE / PROCEDURE REASON: Encounter for screening mammogram for breast cancer * * * * Physician Interpretation * * * * RESULT: [place] [address] #[id number] - [facility] SCREENING W JOSE HISTORY: 64 year-old patient presents for screening. Patient is asymptomatic in both breasts. Patient states no personal history of breast cancer. The patient has a family history of breast cancer. COMPARISON STUDIES: The present examination has been compared to prior imaging studies dated 11/04/2020 (mammogram), 10/15/2021 (mammogram), 11/05/2022 (mammogram), 11/07/2023 (mammogram) and 11/11/2023 (mammogram). MAMMOGRAM TECHNIQUE: The study was acquired using full field digital technology and interpreted from soft copy. Digital Breast Tomosynthesis (DBT) images were obtained and used to assist in the interpretation of this examination. MAMMOGRAM FINDINGS: The breasts are almost entirely fatty. No suspicious masses, calcifications or other abnormalities are seen in either breast. There are no significant interval changes. IMPRESSION IMPRESSION: There is no mammographic evidence of malignancy in either breast. Routine screening mammogram is recommended. Annual mammogram will be due in 1 year. BI-RADS Category 1: Negative RISK: Based on the Tyrer-Cuzick (TC) risk assessment model, this patient has a 4.7% lifetime risk of developing breast cancer, meaning they are at average risk for developing breast cancer. However, this is only an estimate based on available history provided on the patient's questionnaire. We encourage all patients to talk with their providers about these results, further recommendations for managing breast health, and appropriate supplemental screening options if the patient has dense breast tissue. Interpreting Radiologist: Junie Waite M.D. Electronically signed on: 11/28/2024 Vascular Neurologist: JAMAL Transcribe Date/Time: Nov 28 2024 7:46A Dictated by: JUNIE WAITE MD This examination was interpreted and the report reviewed and electronically signed by: JUNIE WAITE MD on Nov 28 2024 9:45AM EST [facility] Study observation (narrative) [facility] DBT Breast - bilateral scree ningOrdered By: [facility] Provider on 11-28-2024 [facility] KEVIN SCREENING W TOMOon 11-28 [facility] SCREENING W JOSE * * *Final Report* * * DATE OF EXAM: Nov 28 2024 8:14AM [facility] [id number] - [place] SCREENING W JOSE / PROCEDURE REASON: Encounter for screening mammogram for breast cancer * * * * Physician Interpretation * * * * RESULT: [place] [address] #[id number] - [facility] SCREENING W JOSE HISTORY: 64 year-old patient presents for screening. Patient is asymptomatic in both breasts. Patient states no personal history of breast cancer. The patient has a family history of breast cancer. COMPARISON STUDIES: The present examination has been compared to prior imaging studies dated 11/04/2020 (mammogram), 10/15/2021 (mammogram), 11/05/2022 (mammogram), 11/07/2023 (mammogram) and 11/11/2023 (mammogram). MAMMOGRAM TECHNIQUE: The study was acquired using full field digital technology and interpreted from soft copy. Digital Breast Tomosynthesis (DBT) images were obtained and used to assist in the interpretation of this examination. MAMMOGRAM FINDINGS: The breasts are almost entirely fatty. No suspicious masses, calcifications or other abnormalities are seen in either breast. There are no significant interval changes. IMPRESSION: There is no mammographic evidence of malignancy in either breast. Routine screening mammogram is recommended. Annual mammogram will be due in 1 year. BI-RADS Category 1: Negative RISK: Based on the Tyrer-Cuzick (TC) risk assessment model, this patient has a 4.7% lifetime risk of developing breast cancer, meaning they are at average risk for developing breast cancer. However, this is only an estimate based on available history provided on the patient's questionnaire. We encourage all patients to talk with their providers about these results, further recommendations for managing breast health, and appropriate supplemental screening options if the patient has dense breast tissue. Interpreting Radiologist: Junie Waite M.D. Electronically signed on: 11/28/2024 Vascular Neurologist: JAMAL Transcribe Date/Time: Nov 28 2024 7:46A Dictated by: JUNIE WAITE MD This examination was interpreted and the report reviewed and electronically signed by: JUNIE WAITE MD on Nov 28 2024 9:45AM EST [id number] CN Normal [facility] Urgent Care Visit Reporton 0 04-17-2024 Urgent Care Visit Report [facility] [address], [address] [place] [address] OFFICE VISIT Date of Service: 04/17/24 MR#: [id number] Acct: [id number] Name: VIOLETA PEARCE Rep #: [id number] : 1960 Provider: ERON Richardson Age/Sex: 64/F Location: [facility] Status: Signed Intake Vital Signs 04/17/24 10:52 Height 5 ft 6 in Weight: 207 lb 2 oz BMI 33.4 BP 134/62 H Blood Pressure Location Lt brachial Position Sitting Respiration 15 Pulse 73 Pulse Source NIBP Temp 98.1 F Temp Source Oral Pulse Oximetry (%) 97 Oxygen Delivery Method room air Intake Visit Reasons: NAUSEA/DIZZINESS Chief Complaint: nausea, dizzy Manager Plumbing Required: No Is patient in pain?: No Allergies milk (dairy) Allergy (Mild, Verified 04/17/24 10:53) Diarrhea Medications ???Medication ???Instructions ???Recorded ???Confirmed ???Type calcium carbonate 600 mg PO BID 04/17/24 04/17/24 History cetirizine 10 mg tablet 10 mg PO QDAY PRN 04/17/24 04/17/24 History cholecalciferol (vitamin D3) 50 50 mcg PO QDAY 04/17/24 04/17/24 History mcg (2,000 unit) capsule estradiol 10 mcg vaginal tablet 10 mcg vaginal 2XW 04/17/24 04/17/24 History (Vagifem) hydrochlorothiazide 25 mg tablet 25 mg PO QDAY 04/17/24 04/17/24 History losartan 50 mg tablet 50 mg PO QDAY 04/17/24 04/17/24 History meclizine 12.5 mg tablet 12.5 mg PO TID PRN dizziness #20 04/17/24 04/17/24 Rx tabs multivitamin 1 tab PO QAM 04/17/24 04/17/24 History triamcinolone acetonide 0.1 % 1 applic topical BID 04/17/24 04/17/24 History topical cream Is last menstrual period known: No Post menopausal: Yes Patient : No Have you fallen in the past year?: No Nurse's Note: dizzy, nausea since this morning. pt denies ROBLES, BA, cough, congestion, fever. denies recent viral illness. has been going to [place] to help her mother. [facility] Medical History (Updated 04/17/24 @ 10:54 by Ava Lobato) HTN (hypertension) Surgical History (Updated 04/17/24 @ 10:54 by Ava Lobato) No pertinent past surgical history Social History (Updated 04/17/24 @ 10:54 by Ava Lobato) Smoking Status: Never smoker alcohol intake: never substance use type: does not use HPI HPI Chief Complaint: nausea, dizzy Details: VIOLETA PEARCE, is a 64 F who presents to the office today for [facility] for approximately 10-12-hour history of persistent nausea and dizziness. Patient notes no complaints of fever, chills, sweats, lightheadedness, vomiting or diarrhea, or chest pain or shortness of breath or dyspnea on exertion. Dizziness is not exacerbated with head motion; no history of head trauma or fall. Non-smoker. Several close contacts recently dx???d w/ similar URI complaints. No fcym-jcc-fojueql taken to assist. Requesting POC screening for COVID-19. No other associated symptoms and no other alleviating/aggravat ing factors. ROS Const Constitutional: No other (As above) Exam Const General: cooperative, healthy appearing and no acute distress Orientation: alert, awake and oriented x3 HENMT Head: normal to inspection Ears: hearing grossly normal bilaterally, external ears normal, TM's normal bilaterally and EAC's normal Nose: external nose normal, nares normal, septum normal and no nasal discharge Face and sinus: normal facial exam, sinuses nontender and face symmetric Mouth: oral mucosae normal, lip normal, tongue normal and oropharynx normal Throat: posterior oropharynx normal, tonsils normal, uvula midline and no postnasal drainage Eyes General: appearance normal, both eyes and all related structures Neck Neck: normal visual inspection, full ROM, no lymphadenopathy, no meningeal signs and supple Neck mass: No Thyroid: thyroid normal Lymphatic: no lymphadenopathy noted Chest Chest palpation inspection: normal inspection of the chest Resp Effort Inspection: normal respiratory effort, able to speak in complete sentences and no unsolicited cough during today's exam Auscultation: Bilateral: Clear to Auscultation Cardio Palpation: normal PMI Rate: tachycardic Rhythm: regular rhythm Heart Sounds: S1 normal, S2 normal, no gallops, no murmurs and no rubs Pulses: radial pulses present Skin General: no rashes or lesions noted Neuro General: patient alert, patient awake and patient oriented x3 Cognition: normal cognition Speech: speech normal Negative Rafat-Hallpike Psych Appearance: grossly normal Mental Status: mental status grossly normal Mood: congruent mood Affect: normal affect Speech and Movement: speech and movement normal Attitude: cooperative Diagnoses Contact with or exposure to other viral diseases Z20.828 Dizziness R42 Assessment and Plan Assessment and Plan (1) Contact with or exposure (more content not included)... Normal [facility] DBT Breast - bilateral rosaliae chico 11-11-2023 IMPRESSION: NEGATIVE There is no mammographic evidence of malignancy. A 1 year screening mammogram is recommended. Marcy Garcia M.D. sb/sixto:11/11/2023 08:08:11 Cork Tipper(s): RT Edwin(R)(M), [facility] letter sent: Normal over 40 Mammogram BI-RADS: Category 1: Negative Multiple national specialty organizations have released breast cancer screening guidelines for women at average risk for developing breast cancer - guidelines that are based on both evidence and opinion, yet differ on when to start and how often to screen for breast cancer. With representation from Breast Imaging, Internal Medicine, Women's Health, Family Medicine, and Medical/Surgical Oncology, the [facility] has carefully reviewed the data and reached the following consensus: 1) All women should engage in shared decision-making with their providers to decide when to start and how often to screen; 2) All women should have the opportunity to start screening mammography at age 40; 3) For women ages 45-55, we recommend annual screening mammograms; 4) For women ages 55 and over, we support both the transition from an annual to a biennial interval if this aligns more with patient's values and preferences, or continuation with annual screening; 5) All women should discuss with their providers when to stop screening mammograms. Vascular Neurologist: Sixto Transcribe Date/Time: Nov 11 2023 7:33A Dictated by: MARCY GARCIA MD This examination was interpreted and the report reviewed and electronically signed by: MARCY GARCIA MD on Nov 11 2023 8:08AM [facility] DIVISION OF RADIOLOGY * * *Final Report* * * DATE OF EXAM: Nov 11 2023 8:02AM [facility]82 - [facility] SCREENING W JOSE / PROCEDURE REASON: multiple diagnoses * * * * Physician Interpretation * * * * RESULT: #[id number] - [facility] SCREENING W JOSE BILATERAL DIGITAL SCREENING MAMMOGRAM TOMOSYNTHESIS WITH CAD: 11/11/2023 HISTORY: /Screening Mammogram with JOSE - patient reports NO breast symptoms /priors available for comparison /priors available for comparison Multiple Diagnoses. RESULT: TECHNIQUE: The study was acquired using full field digital technology and interpreted from soft copy. Digital Breast Tomosynthesis (DBT) images were obtained and used to assist in the interpretation of this examination. Current study was also evaluated with a Computer Aided Detection (CAD). Comparison is made to exams dated: 11/05/2022 mammogram, 10/15/2021 mammogram, 11/04/2020 mammogram, 10/09/2020 mammogram, and 09/27/2019 mammogram - [facility]. There are scattered areas of fibroglandular density. No significant masses, calcifications, or other findings are seen in either breast. There has been no significant interval change. DIVISION OF RADIOLOGY Provider, [facility] [place] - 11/11/2023 * * *Final Report* * * DATE OF EXAM: Nov 11 2023 8:02AM [facility] 0582 - [facility] SCREENING W JOSE / PROCEDURE REASON: multiple diagnoses * * * * Physician Interpretation * * * * RESULT: #[id number] - [facility] SCREENING W JOSE BILATERAL DIGITAL SCREENING MAMMOGRAM TOMOSYNTHESIS WITH CAD: 11/11/2023 HISTORY: /Screening Mammogram with JOSE - patient reports NO breast symptoms /priors available for comparison /priors available for comparison Multiple Diagnoses. RESULT: TECHNIQUE: The study was acquired using full field digital technology and interpreted from soft copy. Digital Breast Tomosynthesis (DBT) images were obtained and used to assist in the interpretation of this examination. Current study was also evaluated with a Computer Aided Detection (CAD). Comparison is made to exams dated: 11/05/2022 mammogram, 10/15/2021 mammogram, 11/04/2020 mammogram, 10/09/2020 mammogram, and 09/27/2019 mammogram - [facility]. There are scattered areas of fibroglandular density. No significant masses, calcifications, or other findings are seen in either breast. There has been no significant interval change. IMPRESSION IMPRESSION: NEGATIVE There is no mammographic evidence of malignancy. A 1 year screening mammogram is recommended. Marcy bragg/sixto:11/11/2023 08:08:11 Cork Tipper(s): RT Edwin(R)(M), [facility] letter sent: Normal over 40 Mammogram BI-RADS: Category 1: Negative Multiple national specialty organizations have released breast cancer screening guidelines for women at average risk for developing breast cancer - guidelines that are based on both evidence and opinion, yet differ on when to start and how often to screen for breast cancer. With representation from Breast Imaging, Internal Medicine, Women's Health, Family Medicine, and Medical/Surgical Oncology, the [facility] has carefully reviewed the data and reached the following consensus: 1) All women should engage in shared decision-making with their providers to decide when to start and how often to screen; 2) All women should have the opportunity to start screening mammography at age 40; 3) For women ages 45-55, we recommend annual screening mammograms; 4) For women ages 55 and over, we support both the transition from an annual to a biennial interval if this aligns more with patient's values and preferences, or continuation with annual screening; 5) All women should discuss with their providers when to stop screening mammograms. Vascular Neurologist: Sixto Transcribe Date/Time: Nov 11 2023 7:33A Dictated by: MARCY GARCIA MD This examination was interpreted and the report reviewed and electronically signed by: MARCY GARCIA MD on Nov 11 2023 8:08AM EST [facility] Study observation (narrative) [facility] DBT Breast - bilateral scree ningOrdered By: Ccf Provider on 11-11-2023 [facility] Venous Duplex US, Unilateral on 10-20-2023 Venous Duplex US, Unilateral [facility] [address] [place] [address] Venous Duplex US, Unilateral 10/20/23 0900 MR#: [id number] Acct: [id number] Name: VIOLETA PEARCE Rep #: [id number] : 1960 63 From: Gustavo Banda MD Attending Dr: Dr. Lio Clarke MD Status: DEP CLI Ordering Dr: Lio Clarke MD Date: 10/20/23 Location: [facility] Sex: F C Admitted: Version 2 Reason For Study: LLE SOFT TISSUE DISORDER RIGHT LEFT CFV is compressible, spontaneous, phasic, GSV is normal. competent and demonstrates normal CFV is compressible, spontaneous, phasic, augmentation. competent, and demonstrates normal Procedure augmentation. This is a venous duplex using B-mode, color FV is compressible, spontaneous, phasic, flow and spectral Doppler. competent and demonstrates normal Exam performed in department. augmentation. The exam was diagnostic. POP V is compressible, spontaneous, phasic, A preliminary report was called and/or faxed competent and demonstrates normal to Dr. Clarke @ 09:15 am @ [phone]. augmentation. T/P Trunk is compressible. PTV is compressible. LT PerV is compressible. VL/Venous Duplex US, Unilateral Interpretation Summary Deep veins of the left lower extremity are patent and compressible segmentally. There is no evidence of left lower extremity deep vein thrombosis. The left great saphenous vein appears patent and compressible segmentally. No soft tissue abnormality or cysts visualized. Ordering Physician: Lio Clarke Referring Physician: Lio Clarke Performed By: Violeta Leblanc, NAHUM, RVT 11/17/23 1714 Date Gustavo Banda MD CC: Dr. Lio Clarke MD Date Dictated: 10/20/23 0900 Date Transcribed: 10/20/23 1738 Vascular Neurologist: Signed Normal [facility] Dexa Bone Density Studyon Dexa Bone Density Study [facility] Imaging Services [address] [place] [id number] Dexa Bone Density Study MR#: [id number] Acct: [id number] Name: VIOLETA PEARCE Rep #: [id number] : 1960 F 63 From: Gonzalo singleton MD PCP: Dr. Jacob Clarke MD Status: [facility] Study: Dexa Bone Density Study Date of Exam: 05/10/23 Exam# [id number] Ordering Dr: Jacob Clarke MD [id number] STUDY: DUAL ENERGY X-RAY ABSORPTIOMETRY / DXA REASON FOR EXAM: Female, 63 years old. M85.89 TECHNIQUE: Bone Mineral Density (BMD) measurements of lumbar spine and bilateral hips were obtained. COMPARISON: None. FINDINGS: Lumbar Spine (L1-L4): g/cm2 (0.877) / T-score (-1.5) / Z-score (0.1) Findings are suggestive of osteopenia with a low fracture risk. Left Femur Total: g/cm2 (1.030) / T-score (0.7) / Z-score (1.9) Left Femoral Neck: g/cm2 (0.903) / T-score (0.5) / Z-score (1.9) Right Femur Total: g/cm2 (0.894) / T-score (-0.4) / Z-score (0.7) Right Femoral Neck: g/cm2 (0.718) / T-score (-1.2) / Z-score (0.2) BD/Dexa Bone Density Study IMPRESSION: The patient is considered osteopenic as outlined below according to World [employer] (WHO) criteria with a low fracture risk. Reference Information: The T-score is the number of standard deviations above or below the standard which is normal for young adults at their peak bone mineral density. The World Health Organization (WHO) interprets the T-scores as follows: Above -1 Normal bone density Between -1 and -2.5 Osteopenia Equal to / or below -2.5 Osteoporosis As a practical clinical guideline, osteopenia may be graded as follows: Mild -1 through -1.5 Moderate -1.6 through -2.0 Severe -2.1 through -2.4 The Z-score is the number of standard deviations above or below age-matched controls. A Z-score of less than -1.5 would be considered abnormal. References: 1. NIH Osteoporosis and Related Bone Diseases www osteo.org 2. International Society for Clinical Densitometry www iscd.org 3. National Osteoporosis Foundation www nof.org Electronically Signed: Gonzalo Jasso MD at 9:23 EST , CC: Dr. Jacob Clarke MD Vascular Neurologist: Signed Normal [facility] Culture, urineOrdered By: Walker Clarke on 03-24-2023 Bacteria identified Cx Nom (U) Escherichia coli [facility] KEVIN SCREENING W TOMOon 11-05 [facility] Basophil percentageon 2021 Basophil percentage 0-5 SEEN /hpf 0-5 [facility] Work Phone: Bilirubin Test strip Ql (U)o n 02-03-2022 Bilirubin Ql (U) Negative Negative [facility] Work Phone: Ketones Test strip Ql (U)on 02-03-2022 Ketones Ql (U) Negative Negative [facility] Work Phone: Mucus LM Ql (Urine sed)on Mucus Ql (Urine sed) 0 SEEN /hpf [facility] Work Phone: Nitrite Test strip Ql (U)on 02-03-2022 Nitrite Ql (U) Negative Negative [facility] Work Phone: Protein Test strip Ql (U)on 02-03-2022 Protein Ql (U) Negative Negative [facility] Work Phone: Squamous epithelial cells de tection in urine sediment by light microscopyon 02-03-2022 Epithelial cells.squamous LM Ql (Urine sed) 0-5 SEEN /hpf 5-10 [facility] Work Phone: Urine blood detectionon RBC Ql (U) 25 /ul Negative [facility] Work Phone: RBC Ql (U) 0-5 SEEN /hpf 0-5 [facility] Work Phone: Urine clarityon 02-03-2022 Clarity (U) Sl. Cloudy Clear [facility] Work Phone: Urine color determinationon 02-03-2022 Color (U) Yellow Yellow [facility] Work Phone: Urine glucose detectionon Glucose Ql (U) Normal mg/dl Normal [facility] Work Phone: Urine leukocyte esterase det ection by dipstickon 02-03-2022 Leukocyte esterase Test strip Ql (U) 25 /ul Negative [facility] Work Phone: Urine pHon 02-03-2022 pH (U) 5.0 [pH] 5.0 - 8.0 [facility] Work Phone: Urine sediment bacteria coun t by microscopy (number/high power field)on 02-03-2022 Bacteria LM.HPF (Urine sed) [#/Area] 1 /[HPF] None Seen [facility] Work Phone: Urine specific gravity measu rementon 02-03-2022 Specific gravity (U) [Rel density] 1.010 1.002-1.030 [facility] Work Phone: Urobilinogen Auto test strip Ql (U)on 02-03-2022 Urobilinogen Ql (U) Normal mg/dl Normal [facility] Work Phone: Laboratory - Microbiology an d Antimicrobial susceptibilityon 12-14-2021 SARS-CoV-2 (COVID-19) RNA JASMIN+probe Ql (Unsp spec) Not detected Not Detect [facility] Work Phone: Comment on above: Normal Reference Ran ge: Not DetectedMethod:(RT-PCR) real-time reverse transcriptase PCRLuminex IZZY Instrument*The Food and Drug Administration (FDA) has issued an Emergency Use Authorization (EAU) for the Micromuscle SARS-CoV-2 Assay for the rapid detection of the virus that causes COVID-19. This test has been validated, but the FDAs independent review of this validation is pending.*Negative results do not preclude infection and should not be used as the sole basis for treatment or patient management. Optimum specimen types and timing for peak viral levels during infections caused by SARS-CoV-2 have not been determined. Collection of multiple specimens from the same patient may be necessary to detect the virus. The possibility of a false negative result should be considered if the patient has clinical presentation or has had recent exposure. KEVIN SCREENINGon 10-15-2021 [facility] CORONAVIRUS PCR [CCL]on COVID 19 Result CLINICAL EDUCATION MANAGER Negative Normal [facility] Comment on above: Result Comment: Nega tive for COVID19 (SARS CoV2) by PCR. This test was developed and its performance characteristics determined by [facility] [place]. This test has been authorized by FDA under an Emergency Use Authorization (EUA). This test has been validated in accordance with the FDA's Guidance Document Policy for Diagnostics Testing in Laboratories Certified to Perform High Complexity Testing under CLIA prior to Emergency use Authorization for Coronavirus Disease 2019 during the Public Health Emergency issued on June 02, 2019. [facility] [address] [place] [address] Michael Grigsby III, M.D. [id number] Performed By: #### [id number] #### [address] [address] COVID 19 Source CLINICAL EDUCATION MANAGER Nasopharyngeal Swab Normal [facility] Comment on above: Result Comment: Js ected on 12/05 AT 0856: Previously reported as CLINICAL EDUCATION MANAGER SWAB Performed By: #### [id number] #### [facility],[address] [place] [id number] Coronavirus 2019on 0 COVID 19 Result CLINICAL EDUCATION MANAGER Normal Negative for COVID19 (SARS CoV2) by PCR. [facility] Comment on above: Result Comment: Nega tive for This test was developed and its performance characteristics determined by [facility] [place]. This test has been authorized by FDA under an Emergency Use Authorization (EUA). This test has been validated in accordance with the FDA's Guidance Document Policy for Diagnostics Testing in Laboratories Certified to Perform High Complexity Testing under CLIA prior to Emergency use Authorization for Coronavirus Disease 2019 during the Public Health Emergency issued on June 02, 2019. COVID19 (SARS This test was developed and its performance characteristics determined by [facility] [place]. This test has been authorized by FDA under an Emergency Use Authorization (EUA). This test has been validated in accordance with the FDA's Guidance Document Policy for Diagnostics Testing in Laboratories Certified to Perform High Complexity Testing under CLIA prior to Emergency use Authorization for Coronavirus Disease 2019 during the Public Health Emergency issued on June 02, 2019. CoV2) by PCR. This test was developed and its performance characteristics determined by [facility] [place]. This test has been authorized by FDA under an Emergency Use Authorization (EUA). This test has been validated in accordance with the FDA's Guidance Document Policy for Diagnostics Testing in Laboratories Certified to Perform High Complexity Testing under CLIA prior to Emergency use Authorization for Coronavirus Disease 2019 during the Public Health Emergency issued on June 02, 2019. COVID 19 Source CLINICAL EDUCATION MANAGER Normal [facility] Comment on above: Result Comment: Naso pharyngeal Corrected on 12/05 AT 0856: Previously reported as CLINICAL EDUCATION MANAGER SWAB Swab Corrected on 12/05 AT 0856: Previously reported as CLINICAL EDUCATION MANAGER SWAB Culture, urine Bacteria identified Cx Nom (U) Negative [facility] Work Phone: Vital Signs Date Time Vital Sign Value Performing Clinician Ashlyn armenta 11-28-2024 08:23-0400 Body height 165.[address] MAINTENANCE TECHNICIAN.CNM Work Phone: [facility] 11-28-2024 08:23-0400 Body mass index (BMI) [Ratio] 33.91 kg/m2 Yoselin Lopez [facility]IGHW[address] MAINTENANCE TECHNICIAN.CNM Work Phone: [facility] 11-28-2024 08:23-0400 Body weight 92.[address] MAINTENANCE TECHNICIAN.CNM Work Phone: [facility] 11-28-2024 08:23-0400 Diastolic blood pressure 76 mm[Hg] Yoselin Haddadts [address]IG[address] MAINTENANCE TECHNICIAN.CNM Work Phone: [facility] 11-28-2024 08:23-0400 Systolic blood pressure 118 mm[Hg] Yoselin Plotts [address] MAINTENANCE TECHNICIAN.CNM Work Phone: [facility] 11-11-2023 08:15-0400 Body height 165.[address] MAINTENANCE TECHNICIAN.CNM Work Phone: [facility] 11-11-2023 08:15-0400 Body mass index (BMI) [Ratio] 33.78 kg/m2 Yoselin Plotts [address] MAINTENANCE TECHNICIAN.CNM Work Phone: [facility] 11-11-2023 08:15-0400 Body weight 92.[address] MAINTENANCE TECHNICIAN.CNM Work Phone: [facility] 11-11-2023 08:15-0400 Diastolic blood pressure 70 mm[Hg] Yoselin Plotts [facility]IG[address] MAINTENANCE TECHNICIAN.CNM Work Phone: [facility] 11-11-2023 08:15-0400 Systolic blood pressure 134 mm[Hg] Yoselin Plotts [facility]IG[address] MAINTENANCE TECHNICIAN.CNM Work Phone: [facility] 11-05-2022 08:22-0400 Body height 167.[address] MAINTENANCE TECHNICIAN.CNM Work Phone: [facility] 11-05-2022 08:22-0400 Body weight 86.64 [address] MAINTENANCE TECHNICIAN.CNM Work Phone: [facility] 11-05-2022 08:22-0400 Diastolic blood pressure 72 mm[Hg] Yoselin Plotts [address]IG[address] MAINTENANCE TECHNICIAN.CNM Work Phone: [facility] 11-05-2022 08:22-0400 Systolic blood pressure 130 mm[Hg] Yoselin Plotts [facility]IGHW[address] MAINTENANCE TECHNICIAN.CNM Work Phone: [facility] 10-15-2021 08:58-0400 Body height 165.7 cm Ann Marie Lobato MD Work Phone: [facility] 10-15-2021 08:58-0400 Body weight 88 kg Ann Marie Lobato MD Work Phone: [facility] 10-15-2021 08:58-0400 Diastolic blood pressure 84 mm[Hg] Ann Marie Lobato MD Work Phone: [facility] 10-15-2021 08:58-0400 Systolic blood pressure 124 mm[Hg] Ann Marie Lobato MD Work Phone: [facility] Encounters Encounter Date Encounter Type Care Provider Facility Start: 12-17-2024 End: 12-17-2024 [facility] Facility:[facility] Start: 11-28-2024 End: 11-28-2024 Patient encounter procedure Yoselin Lopez APRN.CNM Work Phone: OB/Gynecology Comment on above: Encounter for gyneco logical examination (general) (routine) without abnormal findings (Primary Dx); Encounter for screening mammogram for breast cancer; Other hemorrhoids Start: 11-28-2024 End: 11-28-2024 Patient encounter status Yoselin Lopez [facility]IGHW[address] MAINTENANCE TECHNICIAN.CNM Work Phone: [facility] Start: 11-28-2024 End: 11-28-2024 [facility] Facility:[facility] Start: 11-28-2024 Encounter for gynecological examination (general) (routine) without abnormal findings YOSELIN LOPEZ [facility] Start: 11-28-2024 End: 11-28-2024 Subsequent hospital visit by physician Screen Mammo [facility] Comment on above: Encounter for screen ing mammogram for breast cancer [Z12.31] Start: 06-29-2024 End: 06-29-2024 Refill Yoselin Lopez APRN.CNHilda Work Phone: OB/Gynecology Comment on above: Refill Request Start: 06-25-2024 End: 06-25-2024 Refill Ann Marie Lobato MD Work Phone: OB/Gynecology Comment on above: Refill Request Start: 04-17-2024 End: 04-17-2024 ambulatory [facility] Start: 11-11-2023 Documentation procedure Mammog savannah Coordinator [facility] Start: 11-11-2023 Letter encounter Mammography Coordinator [facility] Start: 11-11-2023 End: 11-11-2023 Patient encounter procedure Yoselin Lopez APRN.CNHilda Work Phone: OB/Gynecology Comment on above: Encounter for gyneco logical examination (general) (routine) without abnormal findings (Primary Dx); Encounter for screening mammogram for breast cancer; Asymptomatic postmenopausal status; Post-menopause Start: 11-11-2023 End: 11-11-2023 Patient encounter status Yoselin Lopez HIGHW[address] MAINTENANCE TECHNICIAN.CNM Work Phone: [facility] Start: 11-11-2023 End: 11-11-2023 Subsequent hospital visit by physician Screen Mammo [facility] Mammogram Comment on above: Encounter for screen ing mammogram for breast cancer [Z12.31] Start: 10-20-2023 ambulatory [facility]ity:[facility] Start: 10-20-2023 End: 10-20-2023 ambulatory [facility] Facility:[facility] Start: 08-15-2023 Refill Ann Marie López Work Phone: OB/Gynecology Comment on above: Refill Request Start: 05-10-2023 End: 05-10-2023 ambulatory [facility] Work Phone: Start: 05-10-2023 End: 05-10-2023 Patient encounter procedure [facility]-Outpatient Bone Densitometry Work Phone: Start: 05-10-2023 End: 05-10-2023 ambulatory [facility] Facility:[facility] Start: 03-24-2023 End: 03-24-2023 ambulatory [facility] Work Phone: Start: 03-24-2023 End: 03-24-2023 Patient encounter procedure [facility]-Laboratory, Specimen Work Phone: Start: 11-07-2022 Documentation procedure Mammog savannah Coordinator [facility] Start: 11-07-2022 Letter encounter Mammography Coordinator [facility] Start: 11-05-2022 End: 11-05-2022 Patient encounter procedure Yoselin Lopez HIGHW[address] MAINTENANCE TECHNICIAN.CNM Work Phone: OB/Gynecology Comment on above: Encounter for gyneco logical examination (general) (routine) without abnormal findings (Primary Dx); Encounter for screening mammogram for breast cancer; Dense breast tissue; Asymptomatic postmenopausal status Start: 11-05-2022 End: 11-05-2022 Patient encounter status Yoselin Lopez APRN.CNM Work Phone: [facility] Start: 11-05-2022 End: 11-05-2022 Subsequent hospital visit by physician Screen Mammo [facility] Mamm[facility] Comment on above: Encounter for gyneco logical examination (general) (routine) without abnormal findings [Z01.419] Start: 04-21-2022 Refill Ann Marie López Work Phone: OB/Gynecology Comment on above: Refill Request Start: 02-03-2022 End: 02-03-2022 ambulatory [facility] Work Phone: Start: 02-03-2022 End: 02-03-2022 Patient encounter procedure [facility]-Laboratory, Specimen Start: 12-14-2021 End: 12-14-2021 ambulatory [facility] Work Phone: Start: 12-14-2021 End: 12-14-2021 Patient encounter procedure [facility]-Laboratory, Specimen Start: 10-15-2021 Documentation procedure Mammog savannah Coordinator [facility] Start: 10-15-2021 Letter encounter Mammography Coordinator [facility] Start: 10-15-2021 End: 10-15-2021 Patient encounter procedure Ann Marie Lobato MD Work Phone: OB/Gynecology Comment on above: Encounter for gyneco logical examination (general) (routine) without abnormal findings; Encounter for screening mammogram for breast cancer; Dense breast tissue Start: 10-15-2021 End: 10-15-2021 Patient encounter status Ann Marie Lobato MD Work Phone: OB/Gynecology Start: 10-15-2021 End: 10-15-2021 Subsequent hospital visit by physician Screen Mammo [facility] M[facility] Comment on above: Encounter for screen ing mammogram for breast cancer [Z12.31] Start: 12-04-2019 End: 12-04-2019 Patient encounter procedure [facility] Procedures Date Procedure Procedure Detail Performing Clinician Start: 11-28-2024 Screening digital br east tomosynthesis bi Yoselin Lopez HIGHW[address] MAINTENANCE TECHNICIAN.CNM Work Phone: Start: 11-11-2023 Screening digital br east tomosynthesis bi Yoselin Lopez [address]IGHW[address] MAINTENANCE TECHNICIAN.CNM Work Phone: Start: 05-10-2023 Dual energy X-ray absorptiometry Start: 03-24-2023 Bacteria identified in Urine by Culture Start: 03-24-2023 Urine culture Start: 11-05-2022 End: 11-05-2022 Mammography Ann Marie Lobato MD Work Phone: Start: 10-15-2021 End: 10-15-2021 Mammography Ann Marie Lobato MD Work Phone: Start: 05-18-2016 Lipid 1996 panel - S derick or Plasma Screen [facility] Start: 05-21-2011 Colonoscopy Ann Marie trimble MD Work Phone: Bacteria identified in Urine by Culture Urine culture Plan of Treatment Date Care Activity Detail Author Start: 01-06-2035 RSV Vaccine (1 - 1-d ose 75+ series) RSV Vaccine (1 - 1-dose 75+ series) [facility] Start: 02-27-2034 Urine microalbumin profile DTaP,Tdap,Td Vaccine (2 - Td or Tdap) [facility] Start: 11-29-2025 End: 11-29-2025 Patient encounter procedure Mammogram Comment on above: Encounter for screen ing mammogram for breast cancer [Z12.31] annual Start: 11-28-2025 Screening for malign ant neoplasm of breast Mammogram Screening [facility] Start: 10-09-2025 HPV TESTING HPV TESTING [facility] Start: 10-09-2025 PAP TESTING PAP TESTING [facility] Start: 10-09-2025 Screening for malign ant neoplasm of cervix [facility] Start: 02-20-2025 Screening for malign ant neoplasm of colon Cologuard (FIT-DNA) [facility] Start: 12-17-2024 End: 12-17-2024 Patient encounter procedure 12/17/2024 3:30 PM EDT Office Visit General Surgery [address] [place] [address] Vanessa Navarro MD [address] [place] [id number] hemorrhoids [K64.8] General Surgery Comment on above: hemorrhoids [K64.8] Start: 12-03-2024 Influenza vaccination Influenza Vacc ine (#1) [facility] Start: 11-12-2024 End: 11-12-2024 Patient encounter procedure Mammogram Comment on above: Encounter for screen ing mammogram for breast cancer [Z12.31] Annual Start: 11-10-2024 Screening for malign ant neoplasm of breast Mammogram Screening [facility] Start: 12-04-2023 Covid-19 Vaccine () Covid-19 Vaccine () [facility] Start: 12-04-2023 Influenza vaccination [facility] Start: 11-11-2023 End: 11-11-2023 Patient encounter procedure Mammography Comment on above: jose mamm Annual Exam Start: 11-06-2023 End: 12-05-2023 KEVIN SCREENING W JOSE KEVIN SCREENING W JOSE Radiology Routine Encounter for screening mammogram for breast cancer Dense breast tissue Expected: 11/06/2023 (Approximate), Expires: 12/05/2023 [facility] Work Phone: Comment on above: Expected: 11/06/2023 (Approximate), Expires: 12/05/2023 Start: 11-06-2023 Mammography [facility] Start: 11-06-2023 Screening for malign ant neoplasm of breast Mammogram Screening [facility] Start: 04-04-2023 Behavioral Health Screening Behavioral Health Screening [facility] Start: 12-03-2022 Covid-19 Vaccine () Covid-19 Vaccine () [facility] Start: 12-03-2022 Influenza vaccination [facility] Start: 10-15-2022 Mammography MAMMOGRAM [facility] Start: 04-04-2022 DEPRESSION ASSESSMENT DEPRESSION ASS ESSMENT [facility] Start: 02-21-2022 Screening for malign ant neoplasm of colon Colorectal Cancer Screening [facility] Start: 12-03-2021 Influenza vaccination INFLUENZA (#1) [facility] Start: 07-16-2021 COVID-19 VACCINE (4 - Booster for Moderna series) COVID-19 VACCINE (4 - Booster for Moderna series) [facility] Start: 05-21-2021 Colonoscopy COLONOSCOPY [facility] Start: 05-21-2021 COLORECTAL CANCER SCREENING COLORECTAL CANCER SCREENING [facility] Start: 05-21-2021 Screening for malign ant neoplasm of colon Colonoscopy [facility] Start: 05-18-2021 Lipid 1996 panel - Serum or Plasma Lipid Screening [facility] Start: 05-18-2021 Lipid panel Lipid Screening [facility] Start: 05-18-2021 LIPID SCREEN LIPID SCREEN [facility] Start: 05-12-2021 COVID-19 VACCINE (4 - Booster for Moderna series) COVID-19 VACCINE (4 - Booster for Moderna series) [facility] Start: 2020 RSV Vaccine (1 - 1-d ose 60+ series) RSV Vaccine (1 - 1-dose 60+ series) [facility] Start: 04-01-2018 DIABETES SCREEN DIABETES SCREEN [facility] Start: 04-01-2018 Diabetes Screening Diabetes Screenin g [facility] Start: 01-06-2010 Pneumococcal Vaccine : 50+ (1 of 1 - PCV) Pneumococcal Vaccine: 50+ (1 of 1 - PCV) [facility] Start: 01-06-2010 SHINGRIX VACCINE (1 of 2) SHINGRIX VACCINE (1 of 2) [facility] Start: 01-06-2005 COLOGUARD (FIT-DNA) COLOGUARD (FIT-D NA) [facility] Start: 01-06-[address] COLONOGRAPHY [facility] Start: 01-06-2005 FECAL OCCULT BLOOD FECAL OCCULT BLOO D [facility] Start: 01-06-2005 Screening for malign ant neoplasm of colon [facility] Start: 01-06-2005 SIGMOIDOSCOPY SIGMOIDOSCOPY [facility] Start: 01-06-1979 Urine microalbumin profile [facility] Start: 01-06-1978 ANNUAL PCP TEAM REGISTERED NURSE AMBULATORY PAULO DISEASE VISIT ANNUAL PCP TEAM CHRONIC DISEASE VISIT [facility] Start: 01-06-1978 Anxiety Screening Anxiety Screening [facility] Start: 01-06-1978 BP CONTROLLED (<130/80) BP CONTROLLE D (<130/80) [facility] Start: 01-06-1978 Depression Screening Depression Scre ening [facility] Start: 01-06-1978 HIV SCREENING HIV SCREENING [facility] Start: 01-06-1978 HIV screening HIV Screening [facility] Start: 1972 Adult depression screening assessment DEPRESSION SCREENING [facility] End: 12-10-2024 DBT Breast - bilateral screening KEVIN SCREENING W JOSE Radiology Routine Encounter for screening mammogram for breast cancer 1 Occurrences starting 11/11/2023 until 12/10/2024 [facility] Work Phone: Comment on above: 1 Occurrences starti ng 11/11/2023 until 12/10/2024 End: 12-28-2025 DBT Breast - bilateral screening KEVIN SCREENING W JOSE Radiology Routine Encounter for screening mammogram for breast cancer 1 Occurrences starting 11/28/2024 until 12/28/2025 [facility] Work Phone: Comment on above: 1 Occurrences starti ng 11/28/2024 until 12/28/2025 End: 12-05-2023 DXA-AXIAL SKELETON DXA-AXIAL SKELETON Radiology Routine Asymptomatic postmenopausal status 1 Occurrences starting 11/05/2022 until 12/05/2023 [facility] Work Phone: Comment on above: 1 Occurrences starti ng 11/05/2022 until 12/05/2023 End: 11-14-2022 KEVIN SCREENING W JOSE KEVIN SCREENING W JOSE Radiology Routine Encounter for gynecological examination (general) (routine) without abnormal findings Encounter for screening mammogram for breast cancer Dense breast tissue 1 Occurrences starting 10/15/2021 until 11/14/2022 [facility] Work Phone: Comment on above: 1 Occurrences starti ng 10/15/2021 until 11/14/2022 [facility] Immunizations Immunization Date Immunization Notes Care Provider Fa cility 01-02-2022 influenza virus vacc ine, unspecified formulation Screen Wstr [facility] Payers Date Payer Category Payer Self-pay [id number] 2018 Private Health Insurance MMO SUP [employer] PPO [id number] 2018 Unknown MMO MMO [employer] PLUS [id number] 2018-Present [phone] [address] [place] [address] PPO [id number] 2018 Unknown [id number] 2013 Unknown [id number] 1960 Unknown [id number] Unknown [id number] Unknown [id number] Unknown [id number] Unknown [id number] Social History Date Type Detail Facility Start: 12-20-2011 End: 11-05-2022 Tobacco smoking status VTIS Never smoked tobacco [facility] Work Phone: Start: 10-15-2021 End: 11-28-2024 Alcohol intake Current drinker of alcohol (finding) [facility] Start: 1960 Sex Assigned At Not on file [facility] Start: 10-05-2021 End: 10-15-2021 Exposure to SARS-CoV-2 (event) Not sure [facility] Start: 07-18-2014 End: 07-18-2014 Tobacco smoking status NHIS Unknown if ever smoked [facility] Start: 1960 Sex Assigned At Female [facility] Start: 12-20-2011 End: 11-05-2022 Tobacco use and exposure Smokeless tobacco non-user [facility] Start: 11-05-2022 End: 11-28-2024 History of Social function [facility] Start: 11-05-2022 End: 11-28-2024 Tobacco use panel [facility] Start: 03-05-2012 National Score (1-100), lower number is lower risk 72 [facility] Functional Status Date Assessment Result Facility 03-14-2014 Are you deaf, or do you have serious difficulty hearing No 03/14/2014 10:22 AM Rafia Gottlieb Ma [facility] Work Phone: 03-14-2014 Are you blind, or do you have serious difficulty seeing, even when wearing glasses No 03/14/2014 10:22 AM Rafia Gottlieb Ma [facility] 03-14-2014 Do you have serious difficulty walking or climbing stairs No 03/14/2014 10:22 AM Rafia Gottlieb Ma [facility] 03-14-2014 Do you have difficul ty dressing or bathing No 03/14/2014 10:22 AM Rafia Gottlieb Ma [facility] 03-14-2014 Because of a physica l, mental, or emotional condition, do you have difficulty doing errands alone such as visiting a physician's office or shopping No 03/14/2014 10:22 AM Rafia Gottlieb Ma [facility] Mental Status Date Assessment Result Facility 03-14-2014 Because of a physica l, mental, or emotional condition, do you have serious difficulty concentrating, remembering, or making decisions No 03/14/2014 10:22 AM Rafia Gottlieb Ma [facility] Clinical Notes 10-15-2021 to 12-17-2024 Yoselin Lopez APRN.JUAN PABLO - 11/28/2024 8:22 AM Domonique Ceballos Mammo Tech - 11/28/2024 7:50 AM EDTTelephone Encounter - Tere Campbell RN - 06/29/2024 1:27 PM EDTPatient Instructions Note Date & Type Note Facility 12-17-2024 Note HNO ID: [id number] Author: VANESSA NAVARRO MD Service: ? Author Type: Physician Type: Progress Notes Filed: 12/20/2024 14:20 Note Text: Violeta Pearce 1960 REFERRING PHYSICIAN: Yoselin Lopez APRN.* CHIEF COMPLAINT: Hemorrhoids (Has had for 30 years) HPI: The patient is a 64 year old female presents with complaint of hemorrhoidal disease. She complains mostly of protruding hemorrhoidal tissue. She notes BRBPR occasionally with bowel movements. She also states that they are hard to clean. She has noted hemorrhoidal disease for 30 years, since childbirth. She states that she last had colonoscopy 10 years ago, she is doing stool test for screening for colon cancer She notes no colon cancer in family PAST MEDICAL HISTORY Diagnosis Date Atrophic vaginitis Hypertension Osteopenia Psoriasis PAST SURGICAL HISTORY Procedure Laterality Date RMVL SEC MEMBRANOUS CTRC CORNEO-SCLL SCTJ 2006 Cataract removal B/L EYES Current Outpatient Medications Medication Sig docusate sodium (STOOL SOFTENER PO) Take by mouth. hydrocortisone (ANUSOL-HC) 2.5 % rectal cream by RECTAL route two times a day. Estradiol (VAGIFEM) 10 mcg vaginal tablet Use 1 tablet vaginally two times a week. hydroCHLOROthiazide (HYDRODIURIL, ESIDRIX) 25 mg tablet calcium carbonate/vitamin D2 (CALCIUM 600 WITH VITAMIN D ORAL) Take 2 tablets by mouth once daily. losartan (COZAAR) 50 mg tablet Take 50 mg by mouth once daily. CHOLECALCIFEROL, VITAMIN D3, (VITAMIN D3 ORAL) Take 2,000 Int'l Units/L by mouth once daily. CETIRIZINE HCL (ZYRTEC ORAL) Take by mouth. Takes daily during fall EXCEDRIN MIGRAINE 250 MG-250 MG-65 MG TAB prn MULTIVITAMIN TAB Take one(1) tablet daily. IRON 325 MG (65 MG) TAB As needed No current facility-administered medications for this visit. ALLERGIES: Dairy Aid [Lactase] PERSONAL HISTORY: SOCIAL HISTORY[1] FAMILY HISTORY Problem Relation Age of Onset Cancer Mother kidney Hypertension Mother Lipids Mother Dementia Mother Lipids Father Thyroid Father Heart Father [place] Coronary Artery Disease Father Triple By-pass Osteoporosis Father other (parkinsons) Father Hypertension Maternal Aunt Breast Cancer Maternal Aunt Kidney Cancer also Thyroid Sister REVIEW OF SYSTEMS: General: The patient denies fatigue, denies weight loss, notes weight gain, denies feeling hot, and denies feelings of cold. Eyes: The patient denies glaucoma, notes eye injury/surgery, wears glasses or contacts. Ear/Nose/Throat: The patient notes allergies, denies hayfever, denies ear infections, and denies bloody noses. Cardiovascular: The patient denies chest pain, denies heart disease, notes high blood pressure,denies cardiac stent, denies prior heart attack, denies irregular heart beat, denies high cholesterol, notes poor circulation, denies heart failure, other cardiac issues, denies claudication, notes cold feet, denies peripheral arterial stent. Respiratory: The patient denies tuberculosis, denies pneumonia, denies frequent cough, denies pulmonary embolism, denies shortness of breath, and denies coughing up blood. Gastrointestinal: The patient denies difficulty swallowing, denies acid reflux, denies ulcers, denies vomiting, denies jaundice/hepatitis, denies gallbladder problems, denies black or tarry stools, notes hemorrhoids, notes bleeding from rectum, denies diverticulitis, denies constipation, denies diarrhea, denies loss of stool control, and denies hernias. Kidney/Bladder: The patient denies kidney stones, denies urine infections, and denies bloody urine. Skin: The patient denies a history of skin cancer, denies bleeding/changing moles, and denies a history of skin rash. Neurologic: The patient denies a history of epilepsy/convulsions, denies headaches, denies head/spinal injuries, and denies stroke/TIA. Psychiatric: The patient denies psychiatric medications, denies depression, and denies voices, denies substance abuse. Endocrine: The patient denies thyroid disorders, denies diabetes, and notes hormonal problems. Hematologic: The patient denies a history of bruising, denies bleeding, and denies anemia, denies blood clots. Infections: The patient denies a history of measles and mumps, denies rheumatic fever, and denies sexually transmitted diseases. Musculoskeletal: The patient denies back pain/injury, denies back problems, denies sciatica, denies knee/foot trouble, denies arthritis PHYSICAL EXAMINATION: General: The patient is 64 year old female, well nourished, well hydrated in no acute distress. The patient is oriented to time, place, and person. VITALS: Blood pressure 162/96, pulse 94, resp. rate 14, weight 93.4 kg (206 lb), last menstrual period 08/01/2007, SpO2 98%. Body mass index is 34.28 kg/m?. Head: Normal cephalic, atraumatic Eyes: pupils are equally round, sclera are clear/anicteric Neck is supple with no tracheal deviation Cardiac (more content not included)... [facility] 12-17-2024 Note HNO ID: [id number] Author: MAUREEN HUTCHINSON RN Service: ? Author Type: Registered Nurse Type: Progress Notes Filed: 12/20/2024 14:20 Note Text: REVIEW OF SYSTEMS: General: The patient denies fatigue, denies weight loss, notes weight gain, denies feeling hot, and denies feelings of cold. Eyes: The patient denies glaucoma, notes eye injury/surgery, wears glasses or contacts. Ear/Nose/Throat: The patient notes allergies, denies hayfever, denies ear infections, and denies bloody noses. Cardiovascular: The patient denies chest pain, denies heart disease, notes high blood pressure,denies cardiac stent, denies prior heart attack, denies irregular heart beat, denies high cholesterol, notes poor circulation, denies heart failure, other cardiac issues, denies claudication, notes cold feet, denies peripheral arterial stent. Respiratory: The patient denies tuberculosis, denies pneumonia, denies frequent cough, denies pulmonary embolism, denies shortness of breath, and denies coughing up blood. Gastrointestinal: The patient denies difficulty swallowing, denies acid reflux, denies ulcers, denies vomiting, denies jaundice/hepatitis, denies gallbladder problems, denies black or tarry stools, notes hemorrhoids, notes bleeding from rectum, denies diverticulitis, denies constipation, denies diarrhea, denies loss of stool control, and denies hernias. Kidney/Bladder: The patient denies kidney stones, denies urine infections, and denies bloody urine. Skin: The patient denies a history of skin cancer, denies bleeding/changing moles, and denies a history of skin rash. Neurologic: The patient denies a history of epilepsy/convulsions, denies headaches, denies head/spinal injuries, and denies stroke/TIA. Psychiatric: The patient denies psychiatric medications, denies depression, and denies voices, denies substance abuse. Endocrine: The patient denies thyroid disorders, denies diabetes, and notes hormonal problems. Hematologic: The patient denies a history of bruising, denies bleeding, and denies anemia, denies blood clots. Infections: The patient denies a history of measles and mumps, denies rheumatic fever, and denies sexually transmitted diseases. Musculoskeletal: The patient denies back pain/injury, denies back problems, denies sciatica, denies knee/foot trouble, denies arthritis, or denies gout. When was patient's last Mammogram screening? N/A Last Colonoscopy: Maureen Hutchinson RN [facility] 11-28-2024 Note HNO ID: [id number] Author: YOSELIN LOPEZ APRN.CNM Service: ? Author Type: Prick Stitcher Type: Progress Notes Filed: 11/28/2024 08:51 Note Text: Sas Programmer offered: Patient declines. Mcdaniel is a 64 year old who presents for an annual gynecologic exam without complaints. C/O hemorrhoids that are bothersome at times. Postmenopausal: Yes since age 52 HRT use: Yes, estradiol How lon years. Age at Menarche: 13 Still get period: No Sexually active: Yes Time with current partner: 6 years Contraception: None Contraception frequency: Never HPV vaccine: No Last pap smear: 10/09/2020, normal History of abnormal pap: Yes Colposcopy: No. Leep: No. 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 History Comments: Sexual Activity: Yes; Male; Postmenopausal Contraception: No contraception data on record PAST MEDICAL HISTORY Diagnosis Date Atrophic vaginitis Hypertension Osteopenia Psoriasis PAST SURGICAL HISTORY Procedure Laterality Date RMVL SEC MEMBRANOUS CTRC CORNEO-SCLL SCTJ 2007 Cataract removal B/L EYES FAMILY HISTORY Problem Relation Age of Onset Cancer Mother kidney Hypertension Mother Lipids Mother Dementia Mother Lipids Father Thyroid Father Heart Father [place] Coronary Artery Disease Father Triple By-pass Osteoporosis Father other (parkinsons) Father Hypertension Maternal Aunt Breast Cancer Maternal Aunt Kidney Cancer also Thyroid Sister SOCIAL HISTORY Social History Tobacco Use Smoking status: Never Smokeless tobacco: Never Vaping Use Vaping status: Never Used Substance Use Topics Alcohol use: Yes Comment: occasionally Drug use: No REVIEW OF SYSTEMS Abdomen: No abdominal pain, nausea, vomiting, diarrhea, or constipation. No bloating, early satiety, indigestion, or increased flatulence. Bladder: No dysuria, gross hematuria, urinary frequency, urinary urgency, or incontinence Breast: No breast lumps, nipple d/c, overlying skin changes, redness or skin retraction Allergies and current medication updated:Yes SENSITIVE EXAM: The sensitive examination was discussed with the Patient or Patient's Authorized Pullboat Engineer. As applicable, any other physician, advance practice provider, medical student, or other health professional student that will be observing or involved in the sensitive examination for educational or training purposes was discussed with the Patient or Authorized Pullboat Engineer. The Patient or Authorized Pullboat Engineer has agreed to proceed with the sensitive examination. (Sensitive examination includes inspection and/or palpation of the breasts, pelvis, prostate and anorectal regions). EXAM: BP 118/76 Ht 5' 5 (1.65m) Wt 203 lb 12.8 oz (92.4kg) LMP 08/01/2007 BMI 33.91 kg/(m2). GENERAL: pleasant, female in no apparent distress HEENT: Normocephalic, atraumatic, mucus membranes moist, and no lesions NECK: Supple and full range of motion DERMATOLOGY: Normal, without lesions, non-icteric, and non-hirsute BREAST: deferred CHEST: Normal inspiratory effort ABDOMEN: soft, non-tender, and no masses PELVIC: external genitalia normal, normal Bartholin's glands, urethra, Nachusa's glands, no vulvar lesions, no cervical lesions, good vaginal support, physiologic discharge present, normal appearing perineal body and perianal region BIMANUAL: uterus normal size, shape and consistency, no adnexal masses, non-tender, and no cervical motion tenderness RECTOVAGINAL: External hemorrhoid NEURO: alert and oriented x3,exam grossly non-focal EXTREMITIES: normal ASSESSMENT/PLAN: 1) Health maintenance: Pap/HPV up to date. Mammogram up to date Colon cancer screening: up to date with screening TSH/lipids/glucose: followed by PCP 2) Rx for Anusol cream sent - Consult to Gastroenterology- for evaluation/ banding Follow up one year or sooner as needed Yoselin Lopez APRN.CNM [facility] 11-28-2024 History of Presen t illness Narrative Sas Programmer offered: Patient declines. Violeta is a 64 year old who presents for an annual gynecologic exam without complaints. C/O hemorrhoids that are bothersome at times. Postmenopausal: Yes since age 52 HRT use: Yes, estradiol How lon years. Age at Menarche: 13 Still get period: No Sexually active: Yes Time with current partner: 6 years Contraception: None Contraception frequency: Never HPV vaccine: No Last pap smear: 10/09/2020, normal History of abnormal pap: Yes Colposcopy: No. Leep: No. 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 History Comments: Sexual Activity: Yes; Male; Postmenopausal Contraception: No contraception data on record PAST MEDICAL HISTORY Diagnosis Date Atrophic vaginitis Hypertension Osteopenia Psoriasis PAST SURGICAL HISTORY Procedure Laterality Date RMVL SEC MEMBRANOUS CTRC CORNEO-SCLL SCTJ 2007 Cataract removal B/L EYES FAMILY HISTORY Problem Relation Age of Onset Cancer Mother kidney Hypertension Mother Lipids Mother Dementia Mother Lipids Father Thyroid Father Heart Father [place] Coronary Artery Disease Father Triple By-pass Osteoporosis Father other (parkinsons) Father Hypertension Maternal Aunt Breast Cancer Maternal Aunt Kidney Cancer also Thyroid Sister SOCIAL HISTORY Social History Tobacco Use Smoking status: Never Smokeless tobacco: Never Vaping Use Vaping status: Never Used Substance Use Topics Alcohol use: Yes Comment: occasionally Drug use: No REVIEW OF SYSTEMS Abdomen: No abdominal pain, nausea, vomiting, diarrhea, or constipation. No bloating, early satiety, indigestion, or increased flatulence. Bladder: No dysuria, gross hematuria, urinary frequency, urinary urgency, or incontinence Breast: No breast lumps, nipple d/c, overlying skin changes, redness or skin retraction Allergies and current medication updated:Yes SENSITIVE EXAM: The sensitive examination was discussed with the Patient or Patient's Authorized Pullboat Engineer. As applicable, any other physician, advance practice provider, medical student, or other health professional student that will be observing or involved in the sensitive examination for educational or training purposes was discussed with the Patient or Authorized Pullboat Engineer. The Patient or Authorized Pullboat Engineer has agreed to proceed with the sensitive examination. (Sensitive examination includes inspection and/or palpation of the breasts, pelvis, prostate and anorectal regions). EXAM: BP 118/76 Ht 5' 5 (1.65m) Wt 203 lb 12.8 oz (92.4kg) LMP 08/01/2007 BMI 33.91 kg/(m^2). GENERAL: pleasant, female in no apparent distress HEENT: Normocephalic, atraumatic, mucus membranes moist, and no lesions NECK: Supple and full range of motion DERMATOLOGY: Normal, without lesions, non-icteric, and non-hirsute BREAST: deferred CHEST: Normal inspiratory effort ABDOMEN: soft, non-tender, and no masses PELVIC: external genitalia normal, normal Bartholin's glands, urethra, Nachusa's glands, no vulvar lesions, no cervical lesions, good vaginal support, physiologic discharge present, normal appearing perineal body and perianal region BIMANUAL: uterus normal size, shape and consistency, no adnexal masses, non-tender, and no cervical motion tenderness RECTOVAGINAL: External hemorrhoid NEURO: alert and oriented x3,exam grossly non-focal EXTREMITIES: normal ASSESSMENT/PLAN: 1) Health maintenance: Pap/HPV up to date. Mammogram up to date Colon cancer screening: up to date with screening TSH/lipids/glucose: followed by PCP 2) Rx for Anusol cream sent - Consult to Gastroenterology- for evaluation/ banding Follow up one year or sooner as needed Yoselin Lopez APRN.CNM documented in this encounter [facility] 11-28-2024 History of Presen t illness Narrative Radiology Service Progress Note PATIENT NAME: Violeta Pearce DATE OF SERVICE: November 28, 2024 TIME: 7:54 AM PATIENT IDENTITY VERIFICATION COMPLETED USING TWO (2) IDENTIFIERS: Name and Date of confirmed by patient verbally. FALL SCREENING: Has the patient had 2 falls in the last year or 1 fall with injury or currently using an Ambulatory Assistive Device (Walker, Cane, Wheelchair, Crutches, etc.)? No PATIENT GENDER DATA: Assigned female at . status: : No status: NO. PATIENT RELEVANT IMPLANT DATA REVIEWED: Not Applicable PATIENT PRESENTS WITH AN IMPLANTABLE OR ATTACHED TRIM MOUNTER: No RADIOLOGY DEPARTMENT: Mammography PERIPHERAL IV DATA: Not applicable SIGNED BY: Vicenta Norman November 28, 2024 7:54 AM documented in this encounter [facility] 11-28-2024 Note HNO ID: [id number] Author: DOMONIQUE SYED Mammo Tech Service: ? Author Type: Nut Dehydrator Operator Type: Progress Notes Filed: 11/28/2024 07:54 Note Text: Radiology Service Progress Note PATIENT NAME: Violeta Pearce DATE OF SERVICE: November 28, 2024 TIME: 7:54 AM PATIENT IDENTITY VERIFICATION COMPLETED USING TWO (2) IDENTIFIERS: Name and Date of confirmed by patient verbally. FALL SCREENING: Has the patient had 2 falls in the last year or 1 fall with injury or currently using an Ambulatory Assistive Device (Walker, Cane, Wheelchair, Crutches, etc.)? No PATIENT GENDER DATA: Assigned female at . status: : No status: NO. PATIENT RELEVANT IMPLANT DATA REVIEWED: Not Applicable PATIENT PRESENTS WITH AN IMPLANTABLE OR ATTACHED TRIM MOUNTER: No RADIOLOGY DEPARTMENT: Mammography PERIPHERAL IV DATA: Not applicable SIGNED BY: Vicenta Norman November 28, 2024 7:54 AM [facility] 06-29-2024 Telephone encounter Note Last OV 11/11/23. Next OV scheduled 11/12/24. Rx last prescribed by BONIFACIO. Requested Prescriptions Pending Prescriptions Disp Refills Estradiol (VAGIFEM) 10 mcg vaginal tablet 24 tablet 1 Sig: Use 1 tablet vaginally two times a week. Tere Campbell RN [facility] 06-29-2024 Miscellaneous Notes Last OV 11/11/23. Next OV scheduled 11/12/24. Rx last prescribed by BONIFACIO. Requested Prescriptions Pending Prescriptions Disp Refills Estradiol (VAGIFEM) 10 mcg vaginal tablet 24 tablet 1 Sig: Use 1 tablet vaginally two times a week. Tere Campbell RN documented in this encounter [facility] 11-11-2023 History of Presen t illness Narrative Sas Programmer offered: Patient declines. Violeta is a 63 year old who presents for an annual gynecologic exam without complaints. 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 History Comments: Sexual Activity: Yes; Male; Postmenopausal Contraception: No contraception data on record PAST MEDICAL HISTORY No date: Atrophic vaginitis No date: Hypertension No date: Osteopenia No date: PsoriasisPAST SURGICAL HISTORY 2007: RMVL SEC MEMBRANOUS CTRC CORNEO-SCLL SCTJ Comment: Cataract removal B/L EYES FAMILY HISTORY Problem Relation Age of Onset Cancer Mother kidney Hypertension Mother Lipids Mother Dementia Mother Lipids Father Thyroid Father Heart Father [place] Coronary Artery Disease Father Triple By-pass Osteoporosis [...] Allergies and current medication updated:Yes EXAM: BP 134/70 Ht 5' 5.157 (1.66m) Wt 204 lb (92.5kg) LMP 08/01/2007 BMI 33.78 kg/(m^2). GENERAL: pleasant, female in no apparent distress HEENT: Normocephalic, atraumatic, mucus membranes moist, and no lesions NECK: Supple, full range of motion, no adenopathy, and thyroid normal DERMATOLOGY: Normal, without lesions, non-icteric, and non-hirsute BREAST: soft, non-tender, symmetric, no dominant mass, normal nipple-areolar complex, no lymphadenopathy, and no nipple discharge CHEST: Normal inspiratory effort ABDOMEN: soft, non-tender, and no masses PELVIC: external genitalia normal, normal Bartholin's glands, urethra, Nachusa's glands, no vulvar lesions, no cervical lesions, good vaginal support, physiologic discharge present, normal appearing perineal body and perianal region BIMANUAL: uterus normal size, shape and consistency, no adnexal masses, and non-tender RECTOVAGINAL: rectovaginal exam negative for any masses or nodularity. NEURO: alert and oriented x3,exam grossly non-focal EXTREMITIES: normal ASSESSMENT/PLAN: 1) Health maintenance: Pap/HPV up to date. Continue use of vaginal estrogen cream weekly 2) Follow up one year or sooner as needed Yoselin Lopez APRN.CNM documented in this encounter [facility] 11-11-2023 Note Formatting of this n ote might be different from the original. November 11, 2023 PID: [id number] Violeta Pearce [address] [place] [address] Dear Ms. Pearce, We are pleased to inform you that the results of your recent breast imaging exam on 11/11/2023 are normal. Breast tissue can be either dense or not dense. Dense tissue makes it harder to find breast cancer on a mammogram and also raises the risk of developing breast cancer. Your breast tissue is not dense. Talk to your healthcare provider about breast density, risks for breast cancer, and your individual situation. Early detection of cancer is very important. We also understand recommendations regarding breast cancer screening are controversial. Please discuss with your primary care provider which strategy is best for you and whether a mammogram is right for you. Your imaging studies and report will be kept on file at [facility] as part of your permanent medical record and are available for your continuing care. Thank you for allowing us to help in meeting your health care needs. Sincerely, Dr. Garcia Interpreting Radiologist [facility] (Normal over 40) [facility] 11-11-2023 Miscellaneous Notes November 11, 2023 PID: [id number] Violeta Pearce [address] [place] [address] Dear Ms. Pearce, We are pleased to inform you that the results of your recent breast imaging exam on 11/11/2023 are normal. Breast tissue can be either dense or not dense. Dense tissue makes it harder to find breast cancer on a mammogram and also raises the risk of developing breast cancer. Your breast tissue is not dense. Talk to your healthcare provider about breast density, risks for breast cancer, and your individual situation. Early detection of cancer is very important. We also understand recommendations regarding breast cancer screening are controversial. Please discuss with your primary care provider which strategy is best for you and whether a mammogram is right for you. Your imaging studies and report will be kept on file at [facility] as part of your permanent medical record and are available for your continuing care. Thank you for allowing us to help in meeting your health care needs. Sincerely, Dr. Garcia Interpreting Radiologist [facility] (Normal over 40) documented in this encounter [facility] 11-11-2023 History of Presen t illness Narrative Radiology Service Progress Note PATIENT NAME: Violeta Pearce DATE OF SERVICE: November 11, 2023 TIME: 8:02 AM PATIENT IDENTITY VERIFICATION COMPLETED USING TWO (2) IDENTIFIERS: Name and Date of confirmed by patient verbally. FALL SCREENING: Has the patient had 2 falls in the last year or 1 fall with injury or currently using an Ambulatory Assistive Device (Walker, Cane, Wheelchair, Crutches, etc.)? No PATIENT GENDER DATA: Female. status: : No status: NO. PATIENT RELEVANT IMPLANT DATA REVIEWED: Not Applicable PATIENT PRESENTS WITH AN IMPLANTABLE OR ATTACHED TRIM MOUNTER: No RADIOLOGY DEPARTMENT: Mammography PERIPHERAL IV DATA: Not applicable SIGNED BY: Angy Pinedao Srinivas November 11, 2023 8:02 AM documented in this encounter [facility] 08-15-2023 Telephone encounter Note Patient calling requesting refill on her Estradiol Rx. Last seen for annual on 11/05/22. She has upcoming appointment on 11/10/22. Umm Ibanez RN [facility] 08-15-2023 Miscellaneous Notes Patient calling requesting refill on her Estradiol Rx. Last seen for annual on 11/05/22. She has upcoming appointment on 11/10/22. Umm Ibanez RN documented in this encounter [facility] 11-07-2022 Miscellaneous Notes November 08, 2022 PID: [id number] Violeta Herreracatarino [address] [place] [address] Dear Ms. Pearce, We are pleased to [...] report will be kept on file at [facility] as part of your permanent medical record and are available for your continuing care. Thank you for allowing us to help in meeting your health care needs. Sincerely, Dr. Payton Interpreting Radiologist [facility] (Normal over 40) documented in this encounter [facility] 11-05-2022 Instructions Yoselin Lopez APRN.CNM - 11/05/2022 8:43 AM EDT [employer] [...] usual activities immediately. documented in this encounter [facility] 11-05-2022 History of Presen t illness Narrative Violeta is a 62 year old who presents for an annual gynecologic exam without complaints. Engaged. They spend a lot of time riding [employer]. 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 LMP: 08/01/2007, Postmenopausal Age at Menarche: Age at First : Age at Menopause: Double Bass Player History Comments: Sexual Activity: Yes; Male; Postmenopausal Contraception: No contraception data on record PAST MEDICAL HISTORY Diagnosis Date Atrophic vaginitis Hypertension Osteopenia Psoriasis PAST SURGICAL HISTORY Procedure Laterality Date RMVL SEC MEMBRANOUS CTRC CORNEO-SCLL SCTJ 2007 Cataract removal B/L EYES FAMILY HISTORY Problem Relation Age of Onset Cancer Mother kidney Hypertension Mother Lipids Mother Dementia Mother Lipids Father Thyroid Father Heart Father [place] Coronary Artery Disease Father Triple By-pass Osteoporosis [...] external genitalia normal, normal Bartholin's glands, urethra, Nachusa's glands, no vulvar lesions, no cervical lesions, [...] Yoselin Lopez APRN.CNM documented in this encounter [facility] 11-05-2022 History of Presen t illness Narrative [...] 2022 7:46 AM documented in this encounter [facility] 04-21-2022 Miscellaneous Notes Last annual with KJ 10/15/21. Requested Prescriptions Pending Prescriptions Disp Refills Estradiol (VAGIFEM) 10 mcg vaginal tablet [Pharmacy Med Name: ESTRADIOL VAG INSERT W/STARR 1S 10MCG] 24 tablet 1 Sig: USE 1 TABLET VAGINALLY TWO TIMES A WEEK RX INSTRUCTIONS: Pharmacy initiated this request. No need to notify patient. Dian Delgado RN documented in this encounter [facility] 10-15-2021 Miscellaneous Notes October 15, 2021 PID: [id number] Violeta Pearce [address] [place] [address] Dear Ms. Pearce, We are pleased to [...] report will be kept on file at [facility] as part of your permanent medical record and are available for your continuing care. Thank you for allowing us to help in meeting your health care needs. Sincerely, Dr. 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 Bass Player History Comments: Sexual Activity: Yes; Male; Postmenopausal Contraception: No contraception data on record PAST MEDICAL HISTORY Diagnosis Date Atrophic vaginitis Hypertension Osteopenia Psoriasis PAST SURGICAL HISTORY Procedure Laterality Date RMVL SEC MEMBRANOUS CTRC CORNEO-SCLL SCTJ 2007 Cataract removal B/L EYES FAMILY HISTORY Problem Relation Age of Onset Cancer Mother kidney Hypertension Mother Lipids Mother Dementia Mother Lipids Father Thyroid Father Heart Father [place] Coronary Artery Disease Father Triple By-pass Osteoporosis [...] 1 time per week, declines new rx Ann Marie Lobato MD documented in this encounter [facility] 10-15-2021 History of Presen t illness Narrative [...] 2021 9:28 AM documented in this encounter [facility] Evaluation note Diagnosis Encounter for gynecological examination (general) (routine) without abnormal findings Encounter for screening mammogram for breast cancer Dense breast tissue [facility]* Diagnosis Encounter for screening mammogram for breast cancer [facility] Work Phone: Evaluation note* Diagnosis Encounter for gynecological examination (general) (routine) without abnormal findings- Primary Encounter for screening mammogram for breast cancer Dense breast tissue Asymptomatic postmenopausal status [facility]* Diagnosis Encounter for gynecological examination (general) (routine) without abnormal findings Encounter for screening mammogram for breast cancer Dense breast tissue [facility]* Diagnosis Encounter for gynecological examination (general) (routine) without abnormal findings- Primary Encounter for screening mammogram for breast cancer Asymptomatic postmenopausal status Post-menopause Asymptomatic postmenopausal status (age-related) (natural) [facility]* Diagnosis Encounter for screening mammogram for breast cancer Dense breast tissue [facility] Diagnosis Encounter for gynecological examination (general) (routine) without abnormal findings- Primary Encounter for screening mammogram for breast cancer Other hemorrhoids [facility]* Diagnosis Encounter for screening mammogram for breast cancer [facility] Diagnostic Procedure Only (Routine) - Pending Review Specialty Diagnoses / Procedures Referred By Taryn t Referred To Contact [facility] Diagnoses Encounter for gynecological examination (general) (routine) without abnormal findings Encounter for screening mammogram for breast cancer Dense breast tissue Procedures KEVIN SCREENING W JOSE SCREENING DIGITAL BREAST TOMOSYNTHESIS BI SCREENING MAMMOGRAPHY BI 2-VIEW BREAST INC Ann Marie Zhou MD [address] [place] [address] [facility] [address] [place] [address] Referral ID Status Reason Start Date Expiration Date Visits Requested Visits Authorized [id number] Pending Review Auto-Generat ed Referral 10/15/2021 11/14/2022 1 1 T [facility] for referral (narrative)* Diagnostic Procedure Only (Routine) - Authorized Specialty Diagnoses / Procedures Referred By Contac t Referred To Contact [facility] Diagnoses Encounter for screening mammogram for breast cancer Dense breast tissue Procedures KEVIN SCREENING W JOSE SCREENING DIGITAL BREAST TOMOSYNTHESIS BI SCREENING MAMMOGRAPHY BI 2-VIEW BREAST INC Yoselin Godfrey APRN.CNM [address] [place] [address] [facility] [address] [place] [address] Referral ID Status Reason Start Date Expiration Date Visits Requested Visits Authorized [id number] Authorized Auto-Generat ed Referral 11/06/2023 12/05/2023 1 1 T [facility] for referral (narrative)* Diagnostic Procedure Only (Routine) - Closed Specialty Diagnoses / Procedures Referred By Contac t Referred To Contact [facility] Diagnoses Encounter for gynecological examination (general) (routine) without abnormal findings Encounter for screening mammogram for breast cancer Dense breast tissue Procedures KEVIN SCREENING W JOSE SCREENING DIGITAL BREAST TOMOSYNTHESIS BI SCREENING MAMMOGRAPHY BI 2-VIEW BREAST INC Ann Marie Zhou MD [address] [place] [address] [facility] [address] [place] [address] Referral ID Status Reason Start Date Expiration Date V isits Requested Visits Authorized [id number] Closed Auto-Generate d Referral 10/15/2021 11/14/2022 1 1 [facility] for referral (narrative)* Diagnostic Procedure Only (Routine) - Authorized Specialty Diagnoses / Procedures Referred By Contaliyah t Referred To Contact [facility] Diagnoses Encounter for screening mammogram for breast cancer Procedures KEVIN SCREENING W JOSE SCREENING DIGITAL BREAST TOMOSYNTHESIS BI SCREENING MAMMOGRAPHY BI 2-VIEW BREAST INC CAD Yoselin Lopez APRN.CNM [address] [place] [address] [facility] [address] [place] [address] Referral ID Status Reason Start Date Expiration Date Visits Requested Visits Authorized [id number] Authorized Auto-Generat ed Referral 11/11/2023 12/10/2024 1 1 [facility] for referral (narrative)* Diagnostic Procedure Only (Routine) - Closed Specialty Diagnoses / Procedures Referred By Taryn parks Referred To Contact [facility] Diagnoses Encounter for screening mammogram for breast cancer Dense breast tissue Procedures KEVIN SCREENING W JOSE SCREENING DIGITAL BREAST TOMOSYNTHESIS BI SCREENING MAMMOGRAPHY BI 2-VIEW BREAST INC Yoselin Godfrey APRN.CNM [address] [place] [address] [facility] [address] [place] [address] Referral ID Status Reason Start Date Expiration Date V isits Requested Visits Authorized [id number] Closed Auto-Generate d Referral 11/06/2023 12/05/2023 1 1 [facility] for visit Narrative* Diagnostic Procedure Only (Routine) - Closed Specialty Diagnoses / Procedures Referred By Contaliyah t Referred To Contact [facility] Diagnoses Encounter for gynecological examination (general) (routine) without abnormal findings Encounter for screening mammogram for breast cancer Dense breast tissue Procedures KEVIN SCREENING W JOSE SCREENING DIGITAL BREAST TOMOSYNTHESIS BI SCREENING MAMMOGRAPHY BI 2-VIEW BREAST INC Ann Marie Zhou MD [address] [place] [address] [facility] [address] [place] [address] Referral ID Status Reason Start Date Expiration Date V isits Requested Visits Authorized [id number] Closed Auto-Generate d Referral 10/15/2021 11/14/2022 1 1 [facility] for visit Narrative* Diagnostic Procedure Only (Routine) - Closed Specialty Diagnoses / Procedures Referred By Contac t Referred To Contact [facility] Diagnoses Encounter for screening mammogram for breast cancer Dense breast tissue Procedures KEVIN SCREENING W JOSE SCREENING DIGITAL BREAST TOMOSYNTHESIS BI SCREENING MAMMOGRAPHY BI 2-VIEW BREAST INC [facility] CarlinYoselin, HIGHWAY MAINTENANCE TECHNICIAN.[facility] [address] [place] [address] [facility] [address] [place] [address] Referral ID Status Reason Start Date Expiration Date V isits Requested Visits Authorized [id number] Closed Auto-Generate d Referral 11/06/2023 12/05/2023 1 1 [facility] for visit Narrative* Diagnostic Procedure Only (Routine) - Closed Specialty Diagnoses / Procedures Referred By Contac t Referred To Contact [facility] Diagnoses Encounter for screening mammogram for breast cancer Procedures KEVIN SCREENING W JOSE SCREENING DIGITAL BREAST TOMOSYNTHESIS BI SCREENING MAMMOGRAPHY BI 2-VIEW BREAST INC [facility] CarlinYoselin, HIGHWAY MAINTENANCE TECHNICIAN.[facility] [address] [place] [address] Phone: tel: fax: [facility] [address] [place] [address] Referral ID Status Reason Start Date Expiration Date V isits Requested Visits Authorized [id number] Closed Auto-Generate d Referral 11/11/2023 12/10/2024 1 1 [facility] Summary Purpose Family History No Family History Records FoundNo Family History Records FoundNo Family History Records FoundNo Family History Records Found Advance Directives No Advanced Directives Records FoundNo Advanced Directives Records FoundNo Advanced Directives Records FoundNo Advanced Directives Records Found Chief Complaint and Reason for Visit Chief Complaint OSTEOPENIA Additional Source Comments INFORMATION SOURCE (unrecogn ized section and content) DATE CREATED AUTHOR [facility]/12/[address] [facility] DATE CREATED AUTHOR AUTHOR'S ORGANIZ ATION 04/26/2020 [facility] DATE CREATED AUTHOR AUTHOR'S ORGANIZ ATION 04/20/2024 [facility] DATE CREATED AUTHOR AUTHOR'S ORGANIZ ATION 12/22/2024 [facility] Source Comments (unrecognize d section and content) In the event this informatio n is protected by the Federal Confidentiality of Alcohol and Drug Abuse Patient Records regulations: The Federal rules restrict any use of the information to criminally investigate or prosecute any alcohol or drug abuse patient.[facility] the event this information is protected by the Federal Confidentiality of Alcohol and Drug Abuse Patient Records regulations: The Federal rules restrict any use of the information to criminally investigate or prosecute any alcohol or drug abuse patient.[facility]healthIn the event this information is protected by the Federal Confidentiality of Alcohol and Drug Abuse Patient Records regulations: The Federal rules restrict any use of the information to criminally investigate or prosecute any alcohol or drug abuse patient.[facility]healthIn the event this information is protected by the Federal Confidentiality of Alcohol and Drug Abuse Patient Records regulations: The Federal rules restrict any use of the information to criminally investigate or prosecute any alcohol or drug abuse patient.[facility]healthIn the event this information is protected by the Federal Confidentiality of Alcohol and Drug Abuse Patient Records regulations: The Federal rules restrict any use of the information to criminally investigate or prosecute any alcohol or drug abuse patient.TrihealthIn the event this information is protected by the Federal Confidentiality of Alcohol and Drug Abuse Patient Records regulations: The Federal rules restrict any use of the information to criminally investigate or prosecute any alcohol or drug abuse patient.TrihealthIn the event this information is protected by the Federal Confidentiality of Alcohol and Drug Abuse Patient Records regulations: The Federal rules restrict any use of the information to criminally investigate or prosecute any alcohol or drug abuse patient.TrihealthIn the event this information is protected by the Federal Confidentiality of Alcohol and Drug Abuse Patient Records regulations: The Federal rules restrict any use of the information to criminally investigate or prosecute any alcohol or drug abuse patient.TrihealthIn the event this information is protected by the Federal Confidentiality of Alcohol and Drug Abuse Patient Records regulations: The Federal rules restrict any use of the information to criminally investigate or prosecute any alcohol or drug abuse patient.TrihealthIn the event this information is protected by the Federal Confidentiality of Alcohol and Drug Abuse Patient Records regulations: The Federal rules restrict any use of the information to criminally investigate or prosecute any alcohol or drug abuse patient.TrihealthIn the event this information is protected by the Federal Confidentiality of Alcohol and Drug Abuse Patient Records regulations: The Federal rules restrict any use of the information to criminally investigate or prosecute any alcohol or drug abuse patient.TrihealthIn the event this information is protected by the Federal Confidentiality of Alcohol and Drug Abuse Patient Records regulations: The Federal rules restrict any use of the information to criminally investigate or prosecute any alcohol or drug abuse patient.TrihealthIn the event this information is protected by the Federal Confidentiality of Alcohol and Drug Abuse Patient Records regulations: The Federal rules restrict any use of the information to criminally investigate or prosecute any alcohol or drug abuse patient.TrihealthIn the event this information is protected by the Federal Confidentiality of Alcohol and Drug Abuse Patient Records regulations: The Federal rules restrict any use of the information to criminally investigate or prosecute any alcohol or drug abuse patient.TrihealthIn the event this information is protected by the Federal Confidentiality of Alcohol and Drug Abuse Patient Records regulations: The Federal rules restrict any use of the information to criminally investigate or prosecute any alcohol or drug abuse patient.[facility] Care Teams (unrecognized sec tion and content) Farm Reporter Relationship Specialty Start Date End Date Lio Clarke MD [address] [facility], [place] [id number] PCP - General Family Practice 02/08/11 Farm Reporter Relationship Specialty Start Date End Date Lio Clarke MD [address] [place], [place] [address] PCP - General Family Practice 02/08/11 Farm Reporter Relationship Specialty Start Date End Date Lio Clarke MD [address] [facility] [place] [address] PCP - General Family Practice 02/08/11 Farm Reporter Relationship Specialty Start Date End Date Lio Clarke MD [address] [facility] [place] [address] PCP - General Family Medicine 02/08/11 Farm Reporter Relationship Specialty Start Date End Date Lio Clarke MD [address] [place] [address], [place] [address] PCP - General Family Medicine 02/08/11 Farm Reporter Relationship Specialty Start Date End Date Lio Clarke MD [address] [place] [address], [place] [address] PCP - General Family Medicine 02/08/11 Farm Reporter Relationship Specialty Start Date End Date Lio Clarke MD [address] [place] [address], [place] [id number] PCP - General Family Medicine 02/08/11 Team Status: Active Member Role Status Dates Dr. Jacob Clarke MD Family Provider Active Dr. Jacob Clarke MD Primary Care Provider Activ e Team Status: Inactive Member Role Status Dates Dr. Jacob Clarke MD Primary Care Provider, Atte nding Provider Active Team Status: Inactive Member Role Status Dates Dr. Jacob Clarke MD Primary Care Provider, Attending Provider, Referring Provider Active Farm Reporter Relationship Specialty Start Date End Date Lio Clarke MD [address] [place] [address] PCP - General Family Medicine 02/08/11 Farm Reporter Relationship Specialty Start Date End Date Lio Clarke MD [address] [place] [address] PCP - General Family Medicine 02/08/11 Farm Reporter Relationship Specialty Start Date End Date Lio Clarke MD [address] [place] [address] PCP - General Family Medicine 02/08/11 Farm Reporter Relationship Specialty Start Date End Date Lio Clarke MD [address] [place] [address] PCP - General Family Medicine 02/08/11 Farm Reporter Relationship Specialty Start Date End Date Lio Clarke MD [address] [place] [address] PCP - General Family Medicine 02/08/11 Farm Reporter Relationship Specialty Start Date End Date Lio Clarke MD [address] [place] [address] PCP - General Family Medicine 02/08/11 Goals (unrecognized section and content) Goals may be documented in a n alternate sectionGoals may be documented in an alternate sectionGoals may be documented in an alternate sectionGoals may be documented in an alternate section Reason for Visit (unrecogniz ed section and content) Reason Comments Refill Request Reason Onset Date Comments Refill Request 08/15/2023 Reason Comments Well Woman Reason Onset Date Comments Refill Request 06/29/2024 Reason Comments Well Woman FOR RECORDS PERTAINING TO PATIENTS WHO ARE [...] BE BASED ON THE PRIMARY CLINICAL RECORDS. [facility] [employer] [facility] provides no warranty or guarantee of the accuracy or completeness of information in this document.
== END | disposition home or self-care (01) ==
LOC: MFPLAB 16:07
PROVIDERS: PCP Family Medicine; Visit Provider Family Medicine
DX: I10 Essential (primary) hypertension (principal); M85.80 Other specified disorders of bone density and structure, unspecified site
CPT/HCPCS: 36415; 80048; 82306; 84443